=== PATIENT | female | born 1965 | race Caucasian/White ===

== ENCOUNTER 2016-09-25 18:59 | Emergency (ER) | payer OTHER ==
[~2016-09-25] VITALS: Ht 165.1 cm; Wt 62.6 kg
[~2016-09-25 18:59] MED LIST: ATV/1 PO; PRLSR20 PO; RTL20 PO
[2016-09-25 19:05] VITALS: TEMP 36.5; Ht 165.1 cm; Wt 62.6 kg
[2016-09-25] MEDS ORDERED: SODIUM CHLORIDE 0.9% 1000ML 1,000 ML IV STA (19:47)
[2016-09-25] MEDS ORDERED: METH20TA66 PO (19:50)
[2016-09-25] MEDS ORDERED: ATV1 PO (19:50)
[2016-09-25] MEDS ORDERED: OPTIRAY 320 IV PRN (20:00)
[2016-09-25] MEDS ORDERED: MoRPHine SULFATE 4 MG/ML 1 ML CARP\\VIAL IV STA (20:09)
[2016-09-25 20:32] LABS: BUN/CREATININE RATIO 8.6 (10-20); CALCIUM 8.7 mg/dl (8.5-10.1); CREATININE 0.65 mg/dl (0.60-1.20); POTASSIUM 3.2 mmol/L (3.5-5.1)
[2016-09-25 20:36] LABS: URINE APPEARANCE CLEAR (CLEAR); URINE BILIRUBIN NEG (NEG); URINE COLOR YELLOW; URINE EPITHELIAL CELL AUTO 20-30 /lpf (0-5); URINE NITRITE NEG (NEG); URINE SPECIFIC GRAVITY 1.006 (1.000-1.030); UROBILINOGEN NEG (NEG); ZZUR CULT IF INDIC CLEAN CATCH NO
[2016-09-25 20:37] LABS: MANUAL MICROSCOPIC REQUIRED? NO; REVIEW REQ? NO
[2016-09-25 21:05] LABS: BASO % 0.1 %; BASO ABS # 0.01 K/uL (0-0.2); COMPLETE YES; EOS % 2.1 %; HEMATOCRIT 38.1 % (37-47); IG% 0.2 %; LYMPH % 22.6 %; LYMPH ABS # 2.37 K/uL (1.2-3.4); MEAN CELL VOLUME 100.3 fL (80-100); MEAN CORPUSCULAR HGB CONC 34.9 g/dl (32-36); MEAN PLATELET VOLUME 8.9 fL (7.4-10.4); MONO % 5.3 %; NEUT % 69.7 %; PLATELET COUNT 335 K/uL (130-400); WHITE BLOOD COUNT 10.48 K/uL (4.8-10.8)
--- NOTE | 2016-09-25 21:20 | DIAGNOSTIC IMAGING REPORT ---
LUMBAR SPINE CT CT DOSE: 285.15 mGy.cm HISTORY: Pain abd and back pain TECHNIQUE: Multiaxial CT images of the lumbar spine were performed and reformatted in the sagittal and coronal plane without the use of contrast. COMPARISON: None. FINDINGS: No fractures. No subluxation. Paraspinal soft tissues are unremarkable. IMPRESSION: No fractures within the lumbar spine. Negative study Electronically signed by: Chay Cordova M.D. 09/25/2016 9:18 PM Dictated Date/Time: 09/25/2016 9:15 PM
--- NOTE | 2016-09-25 21:23 | DIAGNOSTIC IMAGING REPORT ---
ABDOMEN AND PELVIS CT WITH IV CONTRAST CT DOSE: HISTORY: Pain right sided abd pain, bloating, diarrhea TECHNIQUE: Multiaxial CT images of the abdomen and pelvis were performed following the use of intravenous contrast. COMPARISON STUDY: 07/22/2015 FINDINGS: Lung bases are clear. Liver spleen and pancreas appear unremarkable. Appears described findings of pancreatitis have resolved. Gallbladder is negative for distention. The appendix is normal. Bowel pattern is nonobstructive. Suggestion of a slight degree of wall edema of the descending colon. This is seen to a lesser extent involving the transverse colon. Sigmoid colon is considered unremarkable. IMPRESSION: 1. Findings suggesting a mild or low-grade segmental colitis. 2. No evidence for abscess collection or obstruction. 3. Normal appendix. 4. No evidence for an obstructing urinary tract calculus. Electronically signed by: Chay Cordova M.D. 09/25/2016 9:21 PM Dictated Date/Time: 09/25/2016 9:18 PM
[2016-09-25] MEDS ORDERED: OXYCODONE IR HOME PACK PO ONE (22:15)
[2016-09-25] MEDS ORDERED: OXYC1TAB3 PO (22:30)
--- NOTE | 2016-09-25 22:32 | EMERGENCY ROOM VISIT NOTE ---
History First contact with patient: 19:37 Chief Complaint: BACK PAIN Stated Complaint: BACK PAIN,DEHYDRATION,BLOATING History of Present Illness The patient is a 51 year old female who presents to the Emergency Room with complaints of back pain, diarrhea and abdominal bloating. The patient reports that she had a "stomach bug" approximately 3 weeks ago. She reports that since then, she has had persistent diarrhea. Her diarrhea seems to be worse in the morning. She does report a history of irritable bowel syndrome. The patient reports that today, she felt that her abdomen was bloated. She also reports pain in the upper abdomen and in the back, "up and down the spine." The patient reports a history of similar symptoms approximately one year ago. At that time, she was seen here and diagnosed with pancreatitis. She reports that she was supposed to have a colonoscopy afterward, but that it was canceled twice. She denies any recent antibiotic use. She denies any uncooked food sources or unknown water sources. She denies any nausea, vomiting, fevers/ chills, chest pain or shortness of breath. She denies any blood in her stools. She denies any urinary symptoms. The patient does state that she was seen yesterday at [facility] walk-in clinic and given Cipro for a possible urinary tract infection. Review of Systems A complete 10-point Review of Systems was discussed with the patient, with pertinent positives and negatives listed in the History of Present Illness. All remaining Review of Systems questions can be considered negative unless otherwise specified. Past Medical/Surgical History Medical Problems: (1) Anxiety (2) Colitis (3) Depression (4) History of breast cancer (5) Irritable bowel syndrome (6) Pancreatitis Surgical Problems: (1) Status post mastectomy Family History No significant family history Social History Smoking Status: Current Every Day Smoker Alcohol Use: occasionally Marital Status: Housing Status: lives with family Occupation Status: employed Current/Historical Medications Scheduled Lorazepam (Lorazepam), 1 MG PO QAM Methylphenidate (Ritalin), 10 MG PO QD@1200 Methylphenidate HCl (Methylphenidate HCl), 10 MG PO QAM Scheduled PRN Oxycodone Ir (Roxicodone Ir), 1-2 TAB PO Q4H PRN for Pain Allergies Coded Allergies: Penicillins (Verified Allergy, Unknown, 08/11/11) Sulfa Drugs (Verified Allergy, Unknown, 08/11/11) Physical Exam Vital Signs Date Time Temp Pulse Resp B/P Pulse Ox O2 Delivery O2 Flow Rate FiO2 09/25/16 22:35 89 18 130/87 97 09/25/16 20:48 94 18 112/74 96 Room Air 09/25/16 19:05 36.5 100 16 144/89 97 Room Air Physical Exam VITALS: Vitals are noted on the nurse's note and reviewed by myself. Vital signs stable. GENERAL: This is a 51-year-old female, in no acute distress, nondiaphoretic, well-developed well-nourished. SKIN: Capillary reflex less than 2 seconds. HEENT: Normocephalic. PERRLA. EOMI. Nares patent. Mucous membranes moist. Neck is supple without nuchal rigidity. HEART: Regular rate and rhythm without murmurs gallops or rubs. LUNGS: Clear to auscultation bilaterally without wheezes, rales or rhonchi. No retractions or accessory muscle use. ABDOMEN: Hyperactive bowel sounds x 4. No significant tenderness to palpation. MUSCULOSKELETAL: No tenderness of the lumbar spine. NEURO: Patient was alert and oriented to person place and time. Medical Decision & Procedures ER Provider Diagnostic Interpretation: LUMBAR SPINE CT FINDINGS: No fractures. No subluxation. Paraspinal soft tissues are unremarkable. IMPRESSION: No fractures within the lumbar spine. Negative study ABDOMEN AND PELVIS CT WITH IV CONTRAST FINDINGS: Lung bases are clear. Liver spleen and pancreas appear unremarkable. Appears described findings of pancreatitis have resolved. Gallbladder is negative for distention. The appendix is normal. Bowel pattern is nonobstructive. Suggestion of a slight degree of wall edema of the descending colon. This is seen to a lesser extent involving the transverse colon. Sigmoid colon is considered unremarkable. IMPRESSION: 1. Findings suggesting a mild or low-grade segmental colitis. 2. No evidence for abscess collection or obstruction. 3. Normal appendix. 4. No evidence for an obstructing urinary tract calculus. Laboratory Results 09/25/16 20:00 Red Blood Count 3.80, Mean Corpuscular Volume 100.3, Mean Corpuscular Hemoglobin 35.0, Mean Corpuscular Hemoglobin Concent 34.9, Mean Platelet Volume 8.9, Neutrophils (%) (Auto) 69.7, Lymphocytes (%) (Auto) 22.6, Monocytes (%) ( Auto) 5.3, Eosinophils (%) (Auto) 2.1, Basophils (%) (Auto) 0.1, Neutrophils # ( Auto) 7.30, Lymphocytes # (Auto) 2.37, Monocytes # (Auto) 0.56, Eosinophils # ( Auto) 0.22, Basophils # (Auto) 0.01 09/25/16 20:00 Test 09/25/16 20:00 09/25/16 20:03 White Blood Count 10.48 K/uL (4.8-10.8) Red Blood Count 3.80 M/uL (4.2-5.4) Hemoglobin 13.3 g/dL (12.0-16.0) Hematocrit 38.1 % (37-47) Mean Corpuscular Volume 100.3 fL (80-100) Mean Corpuscular Hemoglobin 35.0 pg (25-34) Mean Corpuscular Hemoglobin Concent 34.9 g/dl (32-36) Platelet Count 335 K/uL (130-400) Mean Platelet Volume 8.9 fL (7.4-10.4) Neutrophils (%) (Auto) 69.7 % Lymphocytes (%) (Auto) 22.6 % Monocytes (%) (Auto) 5.3 % Eosinophils (%) (Auto) 2.1 % Basophils (%) (Auto) 0.1 % Neutrophils # (Auto) 7.30 K/uL (1.4-6.5) Lymphocytes # (Auto) 2.37 K/uL (1.2-3.4) Monocytes # (Auto) 0.56 K/uL (0.11-0.59) Eosinophils # (Auto) 0.22 K/uL (0-0.5) Basophils # (Auto) 0.01 K/uL (0-0.2) RDW Standard Deviation 51.9 fL (36.4-46.3) RDW Coefficient of Variation 14.1 % (11.5-14.5) Immature Granulocyte % (Auto) 0.2 % Immature Granulocyte # (Auto) 0.02 K/uL (0.00-0.02) Anion Gap 10.0 mmol/L (3-11) Est Creatinine Clear Calc Drug Dose 94.2 ml/min Estimated GFR () 120.8 Estimated GFR (Non- 104.3 BUN/Creatinine Ratio 8.6 (10-20) Calcium Level 8.7 mg/dl (8.5-10.1) Total Bilirubin 0.6 mg/dl (0.2-1) Aspartate Amino Transf (AST/SGOT) 17 U/L (15-37) Alanine Aminotransferase (ALT/SGPT) 15 U/L (12-78) Alkaline Phosphatase 90 U/L (45-117) Total Protein 7.0 gm/dl (6.4-8.2) Albumin 3.5 gm/dl (3.4-5.0) Globulin 3.5 gm/dl (2.5-4.0) Albumin/Globulin Ratio 1.0 (0.9-2) Lipase 3113 U/L (73-393) Urine Color YELLOW Urine Appearance CLEAR (CLEAR) Urine pH 6.0 (4.5-7.5) Urine Specific [place] 1.006 (1.000-1.030) Urine Protein NEG (NEG) Urine Glucose (UA) NEG (NEG) Urine Ketones NEG (NEG) Urine Occult Blood TRACE (NEG) Urine Nitrite NEG (NEG) Urine Bilirubin NEG (NEG) Urine Urobilinogen NEG (NEG) Urine Leukocyte Esterase NEG (NEG) Urine WBC (Auto) 1-5 /hpf (0-5) Urine RBC (Auto) 0-4 /hpf (0-4) Urine Hyaline Casts (Auto) 0 /lpf (0-5) Urine Epithelial Cells (Auto) 20-30 /lpf (0-5) Urine Bacteria (Auto) NEG (NEG) Urine Test NEG (NEG) Medications Administered Medications (Trade) Dose Ordered Sig/Concepcion Route Start Time Stop Time Status Last Admin Dose Admin Sodium Chloride (Nss 1000ml) 1,000 ml @ 999 mls/hr Q1H1M STAT IV 09/25/16 19:47 09/25/16 20:47 DC 09/25/16 20:01 999 MLS/HR Morphine Sulfate (MoRPHine SULFATE INJ) 4 mg NOW STAT IV 09/25/16 20:09 09/25/16 20:10 DC 09/25/16 20:17 4 MG Oxycodone HCl (Roxicodone Immediate Rel 5MG Home Pack) 1 homepack UD ONCE PO 09/25/16 22:15 09/25/16 22:16 DC 09/25/16 22:25 1 HOMEPACK Medical Decision Differential diagnosis includes gastroenteritis, colitis, pancreatitis, diverticulitis, among others. The patient was evaluated as above. Labs were drawn and IV access was obtained. Imaging studies were performed and read by radiology as above. The patient was medicated as above. The patient was reassessed multiple times during their stay in the emergency department and remained in stable condition. The patient is a 51-year-old female who presents today complaining of abdominal bloating and persistent diarrhea. Labs revealed. No leukocytosis, anemia or concerning elect avoid abnormalities. Potassium was slightly low at 3.2, likely secondary to diarrhea. Lipase was found to be elevated at 3113. CT of the abdomen/pelvis did not show any evidence of acute pancreatitis, although the patient does likely have mild pancreatitis continued into her symptoms. CT did show evidence of a mild colitis. CT of the lumbar spine was performed and showed no acute abnormalities. On the patient's previous admission last year, she was found to have colitis but did not follow up for a colonoscopy. She will likely need to have this done as an outpatient. She was not able to provide a stool sample and was given an order to do so. She was given IV morphine with good relief of her pain. She will be discharged home on OxyIR and follow-up with the primary care provider within 48 hours. Urinalysis was not suggestive of infection. Urine was negative. The patient was offered admission for pain control but preferred to be discharged home. She will return for worsening symptoms. Based on the patient's presentation, lab results, and imaging studies, I feel the patient is stable for outpatient treatment. The patient's case was reviewed with Dr. Dias, ED attending physician, who agreed with my assessment and treatment plan. Discharge instructions were reviewed with the patient. The patient verbalized understanding of my assessment and treatment plan and was discharged home in good condition. Impression Primary Impression: Colitis Additional Impression: Pancreatitis Departure Information Dispostion Home / Self-Care Condition GOOD Prescriptions Oxycodone Ir (Roxicodone Ir) 5 Mg Tab 1-2 TAB PO Q4H Y for Pain, #15 TAB For Initial Treatment Prov: Darlyn Cordero .FRANCIA 09/25/16 Referrals Abdiel Frias M.D. (PCP) Patient Instructions My [facility] Additional Instructions You have been prescribed OxyIR to be used for pain control. Take 1-2 tablets every 4-6 hours as needed for pain. This is a narcotic medication. You cannot drive or consume alcohol while on this medicine. This medicine should only be used for pain that cannot be controlled with [id number] pain medicines. For pain control, you can use the following [id number] medicines (if >12 yo): - Regular strength (325mg/tab) Tylenol (acetaminophen) 2 tabs every 4-6 hours as needed. Do not exceed 12 tablets in a 24 hour period. Avoid taking more than 4 grams (4000 mg) of Tylenol per day. This includes any other sources of acetaminophen you may take on a regular basis. - Regular strength (200 mg/tab) Advil (ibuprofen) 1-2 tabs every 4-6 hours as needed. Do not exceed a dose of 3200 mg per day. Clear liquid diet for the next 48 hours. Follow-up with your primary care provider within 48 hours. You were given an order to have your stool tested as an outpatient. You may bring the sample to the lab. Return to the emergency department with worsening pain, vomiting, fevers, or any other new/concerning symptoms. Problem Qualifiers Additional Impression: Pancreatitis Chronicity: acute Pancreatitis type: unspecified pancreatitis type Acute pancreatitis complication: unspecified Qualified Codes: K85.90 - Acute pancreatitis without necrosis or infection, unspecified
[2016-09-25 22:35] VITALS: BP 130/87; PULSE 89; O2SAT 97
== END 2016-09-25 22:37 | disposition home or self-care (01) ==
LOC: C.EDB 18:59 → C.EDC 22:37
DX: K52.9 Noninfective gastroenteritis and colitis, unspecified (principal); K85.90 Acute pancreatitis without necrosis or infection, unspecified; F32.9 Major depressive disorder, single episode, unspecified; F41.9 Anxiety disorder, unspecified; K58.9 Irritable bowel syndrome, unspecified; F17.200 Nicotine dependence, unspecified, uncomplicated; Z85.3 Personal history of malignant neoplasm of breast; Z90.13 Acquired absence of bilateral breasts and nipples; Z87.19 Personal history of other diseases of the digestive system; Z79.899 Other long term (current) drug therapy; Z88.0 Allergy status to penicillin; Z88.2 Allergy status to sulfonamides

== ENCOUNTER 2019-12-06 08:05 | Inpatient (IN) ==
[2019-12-06] MEDS ORDERED: MULTI-VITAMIN INFUSION 10 ML, THIAMINE HCL 100 MG, FOLIC ACID 1 MG in SODIUM CHLORIDE 0... IV ONE (08:23)
[2019-12-06] MEDS ORDERED: DiphenhydrAMINE HCL 50 MG/ML VIAL IV STA (08:23)
[2019-12-06] MEDS ORDERED: METOCLOPRAMIDE HCL INJ 5 MG/ML 2 ML VIAL IV STA (08:23)
[2019-12-06] MEDS ORDERED: ACETAMINOPHEN 1,000 MG/100 ML VIAL IV STA (08:23)
[2019-12-06] MEDS ORDERED: SODIUM CHLORIDE 0.9% 1000ML 1,000 ML IV ONE (08:23)
[2019-12-06] MEDS ORDERED: FAMOTIDINE 20MG IV PUSH 20 MG/5 ML SYR IV STA (08:23)
[2019-12-06] MEDS ORDERED: LORazepam 1 MG/2 ML VIAL IV STA (08:28)
--- NOTE | 2019-12-06 08:28 | Emergency Department Note ---
Impression & Plan Acute pancreatitis, Alcohol use, Abdominal pain, Acute hypokalemia, Transaminitis ED Provider Note NAME: DAMIEN SHAFER AGE: 54 SEX: F ARRIVES VIA: Walk-In INFORMANT: Patient, ED PROVIDER(S): Emmanuel Whitley MD CHIEF COMPLAINT: Abdominal pain PLAN: Disposition: Admit MEDICAL DECISION MAKING: The patient is a pleasant 54-year-old woman with a past medical history of regular alcohol use with a history of pancreatitis (presumed alcoholic pancreatitis) who presents emergency department with generalized abdominal pain which began yesterday with associated nausea. Patient does not remember exactly but feels as though this could be similar to her pancreatitis. She reports her last drink of alcohol was 5 days ago because she has not been feeling well. She says normally she will have 3 rum drinks after work on a daily basis. She reports that she is unsure if she withdrawals from alcohol as she is always "shaky". She denies any history of alcohol withdrawal seizures. Denies fevers, chills, cough, congestion, diarrhea, urinary symptoms. On arrival the patient is uncomfortable no acute distress, afebrile with stable vital signs. The patient appears clinically dry. She has generalized abdominal tenderness to light touch of the skin. EKG without evidence of acute ischemia. CXR negative. WBC and platelets within normal limits. H/H 11.7/35.1 without recent values for comparison. Potassium 3.1 with repletion provided. Chemistry without acidosis. Glucose is 131. Total bilirubin within normal limits with direct bilirubin 0.4. AST and ALT are elevated at 129 and 151, respectively. Alk phos is 505 without prior values for comparison. Troponin negative/undetectable. Total protein and albumin are low at 5.9 and 2.2, respectively. Lipase is elevated at 4500. Blood alcohol was undetectable. CT of the abdomen pelvis was performed and demonstrates acute pancreatitis. There is mild fatty liver replacement. Mild abdominal/pelvic ascites. No biliary pathology is noted. [facility] with Dr[facility] Monte [facility] hospitalist who will evaluate the patient for admission. Triage Nursing notes reviewed and agree them. Prior medical records reviewed Vital Signs: reviewed and remarkable for no significant abnormalities Differential diagnosis: Appendicitis, ovarian cyst, ovarian torsion, ectopic , TOA, PID, infections, diverticulitis, UTI, obstruction, mesenteric ischemia, aortic pathology, inflammatory bowel disease, renal colic, PUD, pancreatitis, biliary pathology, hernia, volvulus, constipation, as well as other pathologies. ER treatment provided: See below. Diagnostics interpreted by me: ECG: Normal sinus rhythm, 74 bpm, normal axis, no ectopy, no overt ST elevation or depression, QTC 437, QRS 76. Cardiac Monitoring: An order for continuous cardiac monitoring was placed and demonstrated normal sinus rhythm, 74 bpm, no ectopy. Laboratory studies: See below Imaging studies: XR chest 1V portable CLINICAL HISTORY: Chest Pain dyspnea COMPARISON STUDY: 04/13/2019 FINDINGS: The bones soft tissues and hemidiaphragms are normal. The cardiomediastinal silhouette is normal. The lungs are clear. The pulmonary vasculature is normal. IMPRESSION: Negative chest. -- CT abd pelvis IV con only CT DOSE: 289.30 mGy.cm HISTORY: abdominal pain, h/o etoh pancreatitis TECHNIQUE: Multiaxial CT images of the abdomen and pelvis were performed following the use of intravenous contrast. A dose lowering technique was utilized adhering to the principles of ALARA. COMPARISON STUDY: 09/25/2016 FINDINGS: Minimal chronic bibasilar interstitial change. Diffuse fatty replacement of the liver. Hepatomegaly. Edematous change of the pancreas. Moderate peripancreatic infiltrative change. Small amount of fluid within the left and to a lesser extent right paracolic gutter regions. Kidneys enhance uniformly. No evidence for drainable abscess collection or pseudocyst. Bowel pattern is nonobstructive. There is suggestion of slight wall edematous change of the colon. This potentially is a technical artifact. Trace amount of free fluid within the pelvic cul-de-sac. Small superior anterior wall ventral hernia. This is unchanged from the prior study. IMPRESSION: 1. Pancreatitis. 2.. Pancreas is edematous with evidence for moderate to rather significant peripancreatic infiltrative change. 3. Mild abdominal and pelvic ascites. 4. Diffuse fatty replacement of the liver. 5. No evidence for drainable abscess collection or obstructive change. Consultation(s): Case was d/w POLI Gonzalez PAC, with Dr. Monte [facility] hospitalist who will evaluate the patient for admission. HPI: The patient is a pleasant 54-year-old woman with a past medical history of regular alcohol use with a history of pancreatitis (presumed alcoholic pancreatitis) who presents emergency department with generalized abdominal pain which began yesterday with associated nausea. Patient does not remember exactly but feels as though this could be similar to her pancreatitis. She reports her last drink of alcohol was 5 days ago because she has not been feeling well. She says normally she will have 3 rum drinks after work on a daily basis. She reports that she is unsure if she withdrawals from alcohol as she is always "shaky". She denies any history of alcohol withdrawal seizures. Denies fevers, chills, cough, congestion, diarrhea, urinary symptoms. ROS: See above HPI for pertinent positives & negatives. A total of 10 systems reviewed and were otherwise negative. PAST MEDICAL HISTORY:See Below PAST SURGICAL HISTORY:See Below FAMILY HISTORY:See Below SOCIAL HISTORY:See Below HOME MEDICATIONS:See Below ALLERGIES:See Below VITALS:See Below PHYSICAL EXAMINATION: GENERAL: Awake, alert, uncomfortable-appearing, in no distress HENT: Normocephalic, atraumatic. Oropharynx with dry mucous membranes and otherwise unremarkable. EYES: Normal conjunctiva. Sclera non-icteric. NECK: Supple. No nuchal rigidity. FROM. No JVD. RESPIRATORY: Clear to auscultation. CARDIAC: Regular rate, normal rhythm. Extremities warm and well perfused. Pulses equal. ABDOMEN: Soft, non-distended. Generalized tenderness to light touch of the skin. No rebound or guarding. No masses. RECTAL: Deferred. MUSCULOSKELETAL: Chest examination reveals no tenderness. The back is symmetrical on inspection without obvious abnormality. There is no CVA tenderness to palpation. No joint edema. LOWER EXTREMITIES: Calves are equal size bilaterally and non-tender. No edema. No discoloration. NEURO: Normal sensorium. No sensory or motor deficits noted. Slightly tremulous. SKIN: No rash or jaundice noted. 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 Beliefs That Will Affect Care: None Current Living Situation: Alone Other Information That Helps Us Care for You: No Feels Safe at Home: Yes Safety Concerns: Feels Safe At This Time Smoking Status: Former smoker Tobacco Type: cigarettes ; Cigarettes Per Day: 15 ; Do You Dip or Chew Tobacco: No ; Second Hand Exposure: No ; Tobacco Cessation Education Requested by Patient: No Hx Alcohol Use: Yes Hx Substance Use: Yes substance use type: prescription drug Substance Use Type Other:: lorazepam Last Used Substance: Unknown Allergies Allergies Allergy/AdvReac Type Severity Reaction Status Date / Time Penicillins Allergy Unknown Verified 12/06/19 08:58 Sulfa (Sulfonamide Allergy Unknown Verified 12/06/19 08:58 Antibiotics) Home Meds Home Medications Medication Instructions Recorded Confirmed acetaminophen [Tylenol] 650 mg PO UD PRN 12/06/19 12/06/19 ibuprofen 400 mg PO Q6H PRN 12/06/19 12/06/19 lorazepam 1 mg PO QAM 12/06/19 12/06/19 methylphenidate HCl 10 mg PO DAILY@1200 12/06/19 12/06/19 methylphenidate HCl 10 mg PO QAM 12/06/19 12/06/19 quetiapine 50 mg PO HS 12/06/19 12/06/19 Results & Data (ED) Vital Signs Vital Signs - 24 hr 12/06/19 08:09 12/06/19 08:46 12/06/19 08:50 Temperature 36.5 C Temperature Source Oral Pulse Rate 88 79 73 Pulse Rate [Right Finger] Pulse Rate from SpO2 Sensor Respiratory Rate 18 20 19 Respiratory Effort / Characteristics Non-Labored Spontaneous Respiratory Depth Normal Respiratory Pattern Regular Blood Pressure 121/75 Blood Pressure [Right Arm] Blood Pressure Mean 90 Blood Pressure Mean [Right Arm] Blood Pressure Position Sitting Pulse Oximetry 100 Oxygen Delivery Method Room Air Sepsis Recent Fever Within 48 Hours No Sepsis New/Unexplained Change in Mental Status No Sepsis Action Taken by Nursing No Action Required 12/06/19 09:00 12/06/19 09:01 12/06/19 09:02 Temperature Temperature Source Pulse Rate 77 Pulse Rate [Right Finger] 72 Pulse Rate from SpO2 Sensor 78 Respiratory Rate 15 21 Respiratory Effort / Characteristics Non-Labored Respiratory Depth Normal Respiratory Pattern Blood Pressure 145/80 H Blood Pressure [Right Arm] 145/80 H Blood Pressure Mean 86 Blood Pressure Mean [Right Arm] 101 Blood Pressure Position Pulse Oximetry 95 94 Oxygen Delivery Method Room Air Nasal Cannula Sepsis Recent Fever Within 48 Hours Sepsis New/Unexplained Change in Mental Status Sepsis Action Taken by Nursing 12/06/19 09:10 12/06/19 09:20 12/06/19 09:30 Temperature Temperature Source Pulse Rate 81 83 82 Pulse Rate [Right Finger] Pulse Rate from SpO2 Sensor 78 79 85 Respiratory Rate 21 21 17 Respiratory Effort / Characteristics Respiratory Depth Respiratory Pattern Blood Pressure Blood Pressure [Right Arm] Blood Pressure Mean Blood Pressure Mean [Right Arm] Blood Pressure Position Pulse Oximetry 95 94 96 Oxygen Delivery Method Sepsis Recent Fever Within 48 Hours Sepsis New/Unexplained Change in Mental Status Sepsis Action Taken by Nursing 12/06/19 09:50 12/06/19 09:51 12/06/19 10:00 Temperature Temperature Source Pulse Rate Pulse Rate [Right Finger] 76 Pulse Rate from SpO2 Sensor 87 77 95 H Respiratory Rate 20 Respiratory Effort / Characteristics Respiratory Depth Respiratory Pattern Blood Pressure 145/76 H 145/78 H Blood Pressure [Right Arm] 145/76 H Blood Pressure Mean 107 103 Blood Pressure Mean [Right Arm] 99 Blood Pressure Position Pulse Oximetry 95 95 96 Oxygen Delivery Method Room Air Sepsis Recent Fever Within 48 Hours Sepsis New/Unexplained Change in Mental Status Sepsis Action Taken by Nursing 12/06/19 10:10 12/06/19 10:20 12/06/19 10:30 Temperature Temperature Source Pulse Rate Pulse Rate [Right Finger] Pulse Rate from SpO2 Sensor 76 100 H 99 H Respiratory Rate Respiratory Effort / Characteristics Respiratory Depth Respiratory Pattern Blood Pressure 127/83 Blood Pressure [Right Arm] Blood Pressure Mean 94 Blood Pressure Mean [Right Arm] Blood Pressure Position Pulse Oximetry 98 96 96 Oxygen Delivery Method Sepsis Recent Fever Within 48 Hours Sepsis New/Unexplained Change in Mental Status Sepsis Action Taken by Nursing 12/06/19 10:40 Temperature Temperature Source Pulse Rate Pulse Rate [Right Finger] Pulse Rate from SpO2 Sensor 98 H Respiratory Rate Respiratory Effort / Characteristics Respiratory Depth Respiratory Pattern Blood Pressure Blood Pressure [Right Arm] Blood Pressure Mean Blood Pressure Mean [Right Arm] Blood Pressure Position Pulse Oximetry 97 Oxygen Delivery Method Sepsis Recent Fever Within 48 Hours Sepsis New/Unexplained Change in Mental Status Sepsis Action Taken by Nursing Laboratory Data Attestation: I reviewed the patient's lab results. Result diagrams: 12/06/19 08:33 12/06/19 08:33 Lab Results 12/06/19 12/06/19 12/06/19 Range/Units 08:33 08:33 08:33 WBC 7.99 (4.8-10.8) K/uL RBC 3.39 L (4.2-5.4) M/uL Hgb 11.7 L (12.0-16.0) g/dL Hct 35.1 L (37-47) % MCV 103.5 H (80-100) fL MCH 34.5 H (25-34) pg MCHC 33.3 (32-36) g/dL RDW Std Deviation 64.7 H (36.4-46.3) fL RDW Coeff of Kobe 17.6 H (11.5-14.5) % Plt Count 299 (130-400) K/uL MPV 9.5 (7.4-10.4) fL Immature Gran % (Auto) 0.3 % Neut % (Auto) 80.7 % Lymph % (Auto) 13.4 % [place] % (Auto) 5.0 % Eos % (Auto) 0.5 % Baso % (Auto) 0.1 % Immature Gran # (Auto) 0.02 (0.00-0.02) K/uL Neut # (Auto) 6.45 (1.4-6.5) K/uL Lymph # (Auto) 1.07 L (1.2-3.4) K/uL [place] # (Auto) 0.40 (0.11-0.59) K/uL Eos # (Auto) 0.04 (0-0.5) K/uL Baso # (Auto) 0.01 (0-0.2) K/uL Absolute Nucleated RBC 0.03 H (0-0) K/uL Nucleated RBC % (auto) 0.3 % PT 10.6 (9.0-12.0) Seconds INR 1.0 (0.9-1.1) APTT 21.4 (21.0-31.0) Seconds PTT Ratio 0.8 Sodium 135 L (136-145) mmol/L Potassium 3.1 L (3.5-5.1) mmol/L Chloride 102 (98-107) mmol/L Carbon Dioxide 23 (21-32) mmol/L Anion Gap 9.0 (3-11) BUN 6 L (7-18) mg/dl Creatinine 0.75 (0.6-1.2) mg/dl Est Cr Clr Drug Dosing 79.0 ml/min Est GFR ( Amer) 106.2 Est GFR (Non-Af Amer) 91.6 BUN/Creatinine Ratio 8.5 L (10-20) Glucose 131 H (70-99) mg/dl Calcium 8.3 L (8.5-10.1) mg/dl Phosphorus 2.5 (2.5-4.9) mg/dl Magnesium 1.8 (1.8-2.4) mg/dl Total Bilirubin 0.8 (0.2-1) mg/dl Direct Bilirubin 0.4 H (0-0.2) mg/dl AST 129 H (15-37) U/L ALT 151 H (12-78) U/L Alkaline Phosphatase 505 H (45-117) U/L Troponin I < 0.015 (0-0.045) ng/ml Total Protein 5.9 L (6.4-8.2) gm/dl Albumin 2.2 L (3.4-5.0) gm/dl Globulin 3.7 (2.5-4.0) gm/dl Albumin/Globulin Ratio 0.6 L (0.9-2) Lipase 4533 H (73-393) U/L TSH 0.836 (0.300-4.500) uIu/ml HCG, Qual (Negative) Ethyl Alcohol mg/dL (0-3) mg/dl 12/06/19 12/06/19 Range/Units 08:33 08:33 WBC (4.8-10.8) K/uL RBC (4.2-5.4) M/uL Hgb (12.0-16.0) g/dL Hct (37-47) % MCV (80-100) fL MCH (25-34) pg MCHC (32-36) g/dL RDW Std Deviation (36.4-46.3) fL RDW Coeff of Kobe (11.5-14.5) % Plt Count (130-400) K/uL MPV (7.4-10.4) fL Immature Gran % (Auto) % Neut % (Auto) % Lymph % (Auto) % [place] % (Auto) % Eos % (Auto) % Baso % (Auto) % Immature Gran # (Auto) (0.00-0.02) K/uL Neut # (Auto) (1.4-6.5) K/uL Lymph # (Auto) (1.2-3.4) K/uL [place] # (Auto) (0.11-0.59) K/uL Eos # (Auto) (0-0.5) K/uL Baso # (Auto) (0-0.2) K/uL Absolute Nucleated RBC (0-0) K/uL Nucleated RBC % (auto) % PT (9.0-12.0) Seconds INR (0.9-1.1) APTT (21.0-31.0) Seconds PTT Ratio Sodium (136-145) mmol/L Potassium (3.5-5.1) mmol/L Chloride (98-107) mmol/L Carbon Dioxide (21-32) mmol/L Anion Gap (3-11) BUN (7-18) mg/dl Creatinine (0.6-1.2) mg/dl Est Cr Clr Drug Dosing ml/min Est GFR ( Amer) Est GFR (Non-Af Amer) BUN/Creatinine Ratio (10-20) Glucose (70-99) mg/dl Calcium (8.5-10.1) mg/dl Phosphorus (2.5-4.9) mg/dl Magnesium (1.8-2.4) mg/dl Total Bilirubin (0.2-1) mg/dl Direct Bilirubin (0-0.2) mg/dl AST (15-37) U/L ALT (12-78) U/L Alkaline Phosphatase (45-117) U/L Troponin I (0-0.045) ng/ml Total Protein (6.4-8.2) gm/dl Albumin (3.4-5.0) gm/dl Globulin (2.5-4.0) gm/dl Albumin/Globulin Ratio (0.9-2) Lipase (73-393) U/L TSH (0.300-4.500) uIu/ml HCG, Qual Negative (Negative) Ethyl Alcohol mg/dL < 3.0 (0-3) mg/dl Administered Medications Sodium Chloride (Nss 1000ml) 1,000 mls @ 150 mls/hr IV .Q6H40M CHAU Stop: 12/07/19 10:44 Last Admin: 12/06/19 19:27 Dose: 150 mls/hr Documented by: [id number] Infusion: 12/06/19 18:08 Dose: 150 mls/hr Documented by: [id number] Admin: 12/06/19 11:27 Dose: 150 mls/hr Documented by: [id number] Ioversol (Optiray 320 100ml) 93 ml IV ONCE PRN PRN Reason: Interaction Checking Stop: 12/10/19 09:45 Last Admin: 12/06/19 09:46 Dose: 93 ml Documented by: [id number] Morphine Sulfate (Morphine Sulfate) 4 mg IV Q2H PRN PRN Reason: Pain Stop: 12/20/19 10:40 Last Admin: 12/06/19 22:13 Dose: 4 mg Documented by: [id number] Admin: 12/06/19 19:35 Dose: 4 mg Documented by: [id number] Admin: 12/06/19 16:17 Dose: 4 mg Documented by: [id number] Admin: 12/06/19 12:32 Dose: 4 mg Documented by: [id number] Ondansetron HCl (Zofran) 4 mg IV Q4H PRN PRN Reason: Nausea And Vomiting Stop: 01/05/20 10:43 Last Admin: 12/06/19 12:32 Dose: 4 mg Documented by: [id number] Quetiapine Fumarate (Seroquel) 50 mg PO HS CHAU Stop: 01/05/20 20:59 Last Admin: 12/06/19 21:18 Dose: 50 mg Documented by: [id number] Discontinued Medications Diphenhydramine HCl (Benadryl) 25 mg IV NOW STA Stop: 12/06/19 08:24 Last Admin: 12/06/19 08:34 Dose: 25 mg Documented by: [id number] Sodium Chloride (Nss 1000ml) 1,000 mls @ 999 mls/hr IV .Q1H1M ONE Stop: 12/06/19 09:23 Last Infusion: 12/06/19 10:14 Dose: 0 mls/hr Documented by: [id number] Admin: 12/06/19 08:33 Dose: 999 mls/hr Documented by: [id number] Multivitamins 10 ml/ Thiamine HCl 100 mg/ Folic Acid 1 mg/Sodium Chloride 1,011.2 mls @ 1,011.2 mls/hr IV .Q1H ONE Stop: 12/06/19 09:22 Last Infusion: 12/06/19 10:14 Dose: 0 mls/hr Documented by: [id number] Admin: 12/06/19 09:05 Dose: 1,011.2 mls/hr Documented by: [id number] Acetaminophen (Ofirmev) 1,000 mg in 100 mls @ 400 mls/hr IV NOW STA Stop: 12/06/19 08:37 Last Infusion: 12/06/19 09:06 Dose: 0 mls/hr Documented by: [id number] Admin: 12/06/19 08:34 Dose: 400 mls/hr Documented by: [id number] Famotidine (Pepcid 20mg Iv Push) 20 mg in 5 mls @ 2.5 mls/min IV NOW STA Stop: 12/06/19 08:24 Last Admin: 12/06/19 08:34 Dose: 2.5 mls/min Documented by: [id number] Lorazepam (Ativan) 1 mg in 2 mls @ 2 mls/min IV NOW STA Stop: 12/06/19 08:29 Last Admin: 12/06/19 08:55 Dose: 2 mls/min Documented by: [id number] Potassium Chloride (K Michael / Wtr) 10 meq in 100 mls @ 100 mls/hr IV Q1H CHAU Stop: 12/06/19 12:44 Last Infusion: 12/06/19 14:35 Dose: 0 mls/hr Documented by: [id number] Admin: 12/06/19 13:35 Dose: 100 mls/hr Documented by: [id number] Infusion: 12/06/19 12:27 Dose: 0 mls/hr Documented by: [id number] Admin: 12/06/19 11:27 Dose: 100 mls/hr Documented by: [id number] Metoclopramide HCl (Reglan) 10 mg IV NOW STA Stop: 12/06/19 08:24 Last Admin: 12/06/19 08:34 Dose: 10 mg Documented by: [id number] Morphine Sulfate (Morphine Sulfate) 6 mg IV NOW STA Stop: 12/06/19 09:56 Last Admin: 12/06/19 10:15 Dose: 6 mg Documented by: [id number] Morphine Sulfate (Morphine Sulfate) 2 mg IV NOW STA Stop: 12/06/19 11:13 Last Admin: 12/06/19 11:27 Dose: 2 mg Documented by: [id number] Blood Pressure Blood Pressure Findings: Elevated blood pressure Blood Pressure Disposition: elevated BP felt to be situational Discharge Plan Visit Data *Final* Discharge Date/Time: 12/06/19 11:47 Chief Complaint: Abdominal Pain Stated Complaint: PANCREATIC ATTACK - VOMITING ED Provider: Emmanuel Whitley Discharge Problem: Acute pancreatitis, Alcohol use, Abdominal pain, Acute hypokalemia, Transaminitis Patient Disposition: Admitted As Inpatient Discharge Instructions Interventions: ED Discharge Assessment Last Done: 12/06/19 11:47 Discharge Problem: Acute pancreatitis Qualifiers: Pancreatitis type: unspecified pancreatitis type Acute pancreatitis complication: unspecified Qualified Code(s): K85.90 - Acute pancreatitis without necrosis or infection, unspecified
--- NOTE | 2019-12-06 08:48 | XRay Report ---
XR chest 1V portable CLINICAL HISTORY: Chest Pain dyspnea COMPARISON STUDY: 04/13/2019 FINDINGS: The bones soft tissues and hemidiaphragms are normal. The cardiomediastinal silhouette is n ormal. The lungs are clear. The pulmonary vasculature is normal. IMPRESSION: Negative chest. ACT 112: Negative or not required by law. The above report was generated using voice recognition software. It may contain grammatical, syntax or spelling errors. Electronically signed by: Chay Cordova M.D. 12/06/2019 8:46 AM
[2019-12-06 08:53] LABS: Basophils # (auto) 0.01 K/uL (0-0.2); Basophils % (auto) 0.1 %; Eosinophils # (auto) 0.04 K/uL (0-0.5); Eosinophils % (auto) 0.5 %; Hematocrit (blood only) 35.1 % (37-47); Hemoglobin 11.7 g/dL (12.0-16.0); Immature Granulocytes # (auto) 0.02 K/uL (0.00-0.02); Immature Granulocytes % (auto) 0.3 %; Lymphocytes # (auto) 1.07 K/uL (1.2-3.4); Lymphocytes % (auto) 13.4 %; Mean Corpuscular Hemoglobin 34.5 pg (25-34); Mean Corpuscular Hgb Conc 33.3 g/dL (32-36); Mean Corpuscular Volume 103.5 fL (80-100); Mean Platelet Volume 9.5 fL (7.4-10.4); Neutrophils # (auto) 6.45 K/uL (1.4-6.5); Neutrophils % (auto) 80.7 %; Nucleated RBC # (auto) 0.03 K/uL (0-0); Nucleated RBC % (auto) 0.3 %; Platelet Count 299 K/uL (130-400); RDW Coefficient of Variation 17.6 % (11.5-14.5); RDW Standard Deviation 64.7 fL (36.4-46.3); Red Blood Count 3.39 M/uL (4.2-5.4); White Blood Count 7.99 K/uL (4.8-10.8)
[2019-12-06 09:04] LABS: Partial Thromboplastin Ratio 0.8; Partial Thromboplastin Time 21.4 Seconds (21.0-31.0); Prothrombin Time 10.6 Seconds (9.0-12.0)
[2019-12-06 09:11] LABS: Alanine Aminotransferase 151 U/L (12-78); Albumin Level 2.2 gm/dl (3.4-5.0); Aspartate Aminotransferase 129 U/L (15-37); BUN Creatinine Ratio 8.5 (10-20); Bilirubin Direct 0.4 mg/dl (0-0.2); Blood Urea Nitrogen 6 mg/dl (7-18); Calcium 8.3 mg/dl (8.5-10.1); Carbon Dioxide 23 mmol/L (21-32); Chloride 102 mmol/L (98-107); Est GFR (African American) 106.2; Est GFR (Non-African American) 91.6; Glucose 131 mg/dl (70-99); Magnesium 1.8 mg/dl (1.8-2.4); Potassium 3.1 mmol/L (3.5-5.1); Sodium 135 mmol/L (136-145)
[2019-12-06 09:20] LABS: Pregnancy Test, Serum Negative (Negative)
[2019-12-06 09:21] LABS: Albumin Globulin Ratio 0.6 (0.9-2); Alkaline Phosphatase 505 U/L (45-117); Bilirubin,Total 0.8 mg/dl (0.2-1); Globulin 3.7 gm/dl (2.5-4.0); Lipase 4533 U/L (73-393); Phosphorus 2.5 mg/dl (2.5-4.9); Thyroid Stimulating Hormone 0.836 uIu/ml (0.300-4.500); Total Protein 5.9 gm/dl (6.4-8.2); Troponin I < 0.015 ng/ml (0-0.045)
[2019-12-06] MEDS ORDERED: IOVERSOL 100ml IV PRN (09:46)
[2019-12-06] MEDS ORDERED: MoRPHine SULFATE 10 MG/ML CARP/VIAL IV STA (09:55)
--- NOTE | 2019-12-06 09:57 | CT Scan Report ---
CT abd pelvis IV con only CT DOSE: 289.30 mGy.cm HISTORY: abdominal pain, h/o etoh pancreatitis TECHNIQUE: Multiaxial CT images of the abdomen and pelvis were performed following the use of intrave nous contrast. A dose lowering technique was utilized adhering to the principles of ALARA. COMPARISON STUDY: 09/25/2016 FINDINGS: Minimal chronic bibasilar interstitial change. Diffuse fatty replacement of the liver. Hepatomegaly. Edematous change of the pancreas. Moderate peripancreatic infiltrative change. Small amount of fluid within the left and to a lesser extent right paracolic gutter regions. Kidneys enhance uniformly. No evidence for drainable abscess collection or pseudocyst. Bowel pattern is nonobstructive. There is suggestion of slight wall edematous change of the colon. Th is potentially is a technical artifact. Trace amount of free fluid within the pelvic cul-de-sac. Small superior anterior wall ventral hernia. This is unchanged from the prior study. IMPRESSION: 1. Pancreatitis. 2.. Pancreas is edematous with evidence for moderate to rather significant peripancreatic infiltrativ e change. 3. Mild abdominal and pelvic ascites. 4. Diffuse fatty replacement of the liver. 5. No evidence for drainable abscess collection or obstructive change. ACT 112: Negative or not required by law. The above report was generated using voice recognition software. It may contain grammatical, syntax or spelling errors. Electronically signed by: Chay Cordova M.D. 12/06/2019 9:55 AM
--- NOTE | 2019-12-06 10:41 | History & Physical Report ---
Date of Service December 06, 2019 Assessment & Plan (1) Pancreatitis: - Admit to med surg - CT reviewed showing pancreatitis, lipase elevated at 4533 - AST 129, ALT 151, alk phos 505 - follow with am labs to ensure improvement - NPO - NSS at 150 ml/hr x 1 day, given 1 L in the ER - Pain control with morphine, zofran (2) Bipolar 2 disorder: - Continue seroquel 50 mg HS (3) ADD (attention deficit disorder): - PDMP reviewed - takes methylphenidate 20 mg QAM, (not split dosing) along with lorazepam. - Would recommend reducing lorazepam if possible with this medication (4) Alcohol use: - Encourage cessation, drinks 3 drinks daily at least - Continue MVI, thiamine, folic acid daily - Encourage counseling, continue follow up with outpt psych, [facility] (5) History of tobacco use: - States she quit 1.5 months ago, no need for nicotine patch - Smoked 27 yrs ~ 1 ppd (6) DVT prophylaxis: - teds, ambulatory CODE: FULL Dispo: From home, likely to remain in the hospital x 2 days. History of Present Illness Primary Care Provider: Shira Mcduffie DO This is a 54 yo F with PMHx of pancreatitis, tobacco use with 27 years 1 ppd, Bipolar disorder, attention disorder on methylphenidate, who presents with worsening abdominal pain. This began 2 days ago. It is primarily epigastric in nature, radiating to her back, waxes and wanes. 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 She went to her co-workers home and took some ibuprofen for pain, which did not help. Then proceeded to come to the ER early this morning. Her pain was rated 10/10, currently a 7/10, nausea improved. Pt drinks bacardi rum, "3 alcoholic drinks daily on average". She admits to increased alcohol consumption over the past 3 months on a daily basis during the pandemic. Denies needing a drink to wake up, go to work, or hx of seizure. She admits to feeling shaky at times, but does not admit that alcohol improves the shaking. Last episode of pancreatitis was in 2016 but was deemed drug induced by suspected Tileptal as inciting medication, however it is unknown if she was also drinking alcohol at that time. She denies being on any other antiepileptic for mood swings with bipolar, but does take seroquel at night. She follows with [facility] as outpt with Aurea Jensen. PDMP checked and reveals she has been filling lorazepam and methylphenidate Rx routinely. Lipase elevated at 4533, CT reviewed indicating acute pancreatitis. Allergies Allergy/AdvReac Type Severity Reaction Status Date / Time Penicillins Allergy Unknown Verified 12/06/19 08:58 Sulfa (Sulfonamide Allergy Unknown Verified 12/06/19 08:58 Antibiotics) Home Medications Home Medications Medication Instructions Recorded Confirmed Type acetaminophen [Tylenol] 650 mg PO UD PRN 12/06/19 12/06/19 History ibuprofen 400 mg PO Q6H PRN 12/06/19 12/06/19 History lorazepam 1 mg PO QAM 12/06/19 12/06/19 History methylphenidate HCl 10 mg PO DAILY@1200 12/06/19 12/06/19 History methylphenidate HCl 10 mg PO QAM 12/06/19 12/06/19 History quetiapine 50 mg PO HS 12/06/19 12/06/19 History Past Med/Surg History Medical History (Updated 12/07/19 @ 00:35 by Emmanuel Whitley MD) ADD (attention deficit disorder) Alcohol use (Acute) Bipolar 2 disorder Social History Preferred Language: Gabonese Communication Ability: Effective Home Worker Required: No Beliefs That Will Affect Care: None Current Living Situation: Alone Other Information That Helps Us Care for You: No Feels Safe at Home: Yes Safety Concerns: Feels Safe At This Time Smoking Status: Former smoker Tobacco Type: cigarettes ; Cigarettes Per Day: 15 ; Do You Dip or Chew Tobacco: No ; Second Hand Exposure: No ; Tobacco Cessation Education Requested by Patient: No Hx Alcohol Use: Yes Hx Substance Use: Yes substance use type: prescription drug Substance Use Type Other:: lorazepam Last Used Substance: Unknown Review of Systems Review of Systems: Constitutional: No fever, sweats or chills Eyes: No diplopia, no worsening or blurred vision ENT: normal hearing, no trouble swallowing Respiratory: No cough, sputum, dyspnea at rest or on exertion Cardiovascular: No chest pain, tightness or palpitations Abdomen: + pain, +nausea, +vomiting, no diarrhea or constipation Musculoskeletal: No joint pain, calf pain, swelling Neurologic: No weakness, numbness/tingling, or balance problems Psychiatric: No anxiety or depression Skin: No rash or itch Physical Exam Physical Exam: General: awake, alert, no apparent distress, + lights off in room, curled up on left side, appears tired Head: Normocephalic, atraumatic ENT: PERRL, EOMI, no pharyngeal exudate, mucous membranes moist Chest: Clear to auscultation, on room air, no adventitious breath sounds Cardiac: Regular rate and rhythm, no murmur, no JVD, normal peripheral pulses, good capillary refill Abdominal: NABS x 4 quadrants, nondistended, soft, +tender to palpation, + guarding Extremities: Normal inspection, no peripheral edema or erythema, calfs nontender to palpation Psych: Normal mood and affect Neuro: AAO x 3, no gross motor deficits, speech is clear, no peripheral sensory deficits Results & Data Results & Data ([facility]) Vital Signs (Past 12 Hours) Vital Signs Temp Pulse Pulse Resp BP BP Pulse Ox 12/06/19 09:50 76 20 145/76 H 96 12/06/19 09:02 72 21 145/80 H 94 12/06/19 08:09 36.5 C 88 18 121/[address] abd pelvis IV con only CT DOSE: 289.30 mGy.cm HISTORY: abdominal pain, h/o etoh pancreatitis TECHNIQUE: Multiaxial CT images of the abdomen and pelvis were performed following the use of intravenous contrast. A dose lowering technique was utilized adhering to the principles of ALARA. COMPARISON STUDY: 09/25/2016 FINDINGS: Minimal chronic bibasilar interstitial change. Diffuse fatty replacement of the liver. Hepatomegaly. Edematous change of the pancreas. Moderate peripancreatic infiltrative change. Small amount of fluid within the left and to a lesser extent right paracolic gutter regions. Kidneys enhance uniformly. No evidence for drainable abscess collection or pseudocyst. Bowel pattern is nonobstructive. There is suggestion of slight wall edematous change of the colon. This potentially is a technical artifact. Trace amount of free fluid within the pelvic cul-de-sac. Small superior anterior wall ventral hernia. This is unchanged from the prior study. IMPRESSION: 1. Pancreatitis. 2.. Pancreas is edematous with evidence for moderate to rather significant peripancreatic infiltrative change. 3. Mild abdominal and pelvic ascites. 4. Diffuse fatty replacement of the liver. 5. No evidence for drainable abscess collection or obstructive change. ACT 112: Negative or not required by law. The above report was generated using voice recognition software. It may contain grammatical, syntax or spelling errors. Electronically signed by: Chay Cordova M.D. 12/06/2019 9:55 AM XR chest 1V portable CLINICAL HISTORY: Chest Pain dyspnea COMPARISON STUDY: 04/13/2019 FINDINGS: The bones soft tissues and hemidiaphragms are normal. The cardiomediastinal silhouette is normal. The lungs are clear. The pulmonary vasculature is normal. IMPRESSION: Negative chest. ACT 112: Negative or not required by law. The above report was generated using voice recognition software. It may contain grammatical, syntax or spelling errors. Electronically signed by: Chay Cordova M.D. 12/06/2019 8:46 AM ECG Additional Comments: 06-DEC-2019 08:58:22 [facility]-EDSTAT ROUTINE RETRIEVAL Normal sinus rhythm Septal infarct , age undetermined Abnormal ECG When compared with ECG of 16-MAR-2009 18:08, Inverted T waves have replaced nonspecific T wave abnormality in Anterior leads 25mm/s 10mm/mV 150Hz 9.0.9 12SL 241 STEPHON: 16 Referred by: REFERRED SELF Unconfirmed Vent. rate 74 BPM CA interval 128 ms QRS duration 76 ms QT/QTc 394/437 ms P-R-T axes 54 72 71 Code Status & VTE Plan Code Status Ful code - discussed with pt at bedside Supervising Physician Co-Signing Physician Notes I personally saw and examined the patient. I verified all benson points and agree with OLIVIER Siddiqi with the following exceptions and/or additions: 54-year-old female with longstanding alcohol use disorder and prior pancreatitis. Presents to the ER with 2-day history epigastric pain and nausea. She reports increased alcohol intake from however usual due to increased stresses with her daughter giving up her dog to the patient and living with her. 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 She notes taking both Ritalin for attention deficit disorder and lorazepam for anxiety daily in the morning. She reports since coming to the ER she is improving with IV fluids and pain medication given. Currently still does not have an appetite. O/E patient is ill-appearing, no acute distress, epigastric tenderness to palpation without guarding or rebound tenderness, bowel sounds normal A/P Pancreatitis - presumed alcohol induced from history and normal bilirubin. Prior episode in Jul 2015 thought to be due to alcohol (three brandys/day noted in GI consult at that time) +/- carbamazepine use. Will get lipid panel in AM for completeness. IV fluids, pain and nausea medications as above. Trend lipase. Alcohol use disorder - last alcohol drink 5 days prior by history and alcohol level <3 on admission therefore low suspicion of her going through alcohol withdrawal but will start AWSS with lorazepam PRN Elevated LFTs - interestingly AST is lower than ALT, however still suspect this is alcohol induced rather than biliary obstruction given normal bilirubin. PTINR/Plt WNL. Hepatomegaly with fatty liver changes on CT. Gallbladder not mentioned on CT report which I had initially assumed to mean this was surgical absent however on comparison images gallbladder is present and similar to previous without CBD dilatation from my read. If LFTs uptrending will need MRCP/ERCP +/- GI consult Regarding her controlled substances I am concerned with her taking both ritalin and lorazepam together, especially with her alcohol use. PDMP was checked independently however and this appears to be her longstanding regimen. Would hesitate to add opiates to this on discharge but certainly appropriate for inpatient use. PG Care Time/CCT Total # of Minutes Spent Total Time Spent with Patient: Total time spent is greater than 50% in coordination of care (as documented) at patient's floor/unit and/or counseling patient: Coding Level of Care Code 88636 Initial Inpt Care Lvl 3 Diagnoses Pancreatitis K85.90 Bipolar 2 disorder F31.81 ADD (attention deficit disorder) F98.8 Alcohol use Z72.89 History of tobacco use Z87.891 DVT prophylaxis Z29.9
[2019-12-06] MEDS ORDERED: ACETAMINOPHEN 325 MG TAB PO PRN (10:44)
[2019-12-06] MEDS ORDERED: MoRPHine SULFATE 2 MG/ML CARP IV STA (11:12)
[2019-12-06] MEDS: POTASSIUM CHLORIDE / WTR 10 MEQ/100 ML PLCT IV SCH ×2 (11:27→13:35)
[2019-12-06] MEDS: SODIUM CHLORIDE 0.9% 1000ML 1,000 ML IV SCH ×2 (11:27→19:27)
--- NOTE | 2019-12-06 11:32 | Electrocardiogram Report ---
Test Reason : Blood Pressure : / mmHG Vent. Rate : 074 BPM Atrial Rate : 074 BPM P-R Int : 128 ms QRS Dur : 076 ms QT Int : 394 ms P-R-T Axes : 054 072 071 degrees QTc Int : 437 ms Normal sinus rhythm Septal infarct , age undetermined Abnormal ECG When compared with ECG of 16-MAR-2009 18:08, Inverted T waves have replaced nonspecific T wave abnormality in Anterior leads Confirmed by Geovanni Goncalves ([id number]) on 12/06/2019 11:32:27 AM Referred By: REFERRED SELF Confirmed By:Geovanni Goncalves
[2019-12-06] MEDS: MoRPHine SULFATE 4 MG/ML 1 ML CARP\\VIAL IV PRN ×4 (12:32→22:13)
[2019-12-06] MEDS: ONDANSETRON INJ 2 MG/ML 2 ML VIAL IV PRN (12:32)
[2019-12-06 16:37] LABS: Appearance Urine Cloudy (Clear); Bacteria Urine Automated 4+ (Negative); Bilirubin Urine Negative (Negative); Blood Urine Negative (Negative); Color Urine Dark Yellow; Epithelial Cell Urine Auto >30 /lpf (0-5); Glucose Urine UA Negative (Negative); Ketones Urine Negative (Negative); Leukocyte Esterase Urine Negative (Negative); Nitrite Urine Positive (Negative); Protein Urine Trace (Negative); RBC Urine Automated 0-4 /hpf (0-4); Specific Gravity Urine > 1.045 (1.000-1.030); Urobilinogen Urine Negative (Negative)
[2019-12-06] MEDS: QUETIAPINE FUMARATE 25 MG TABLET PO SCH (21:18)
[2019-12-07] MEDS ORDERED: LORazepam 1 MG TAB PO PRN ×2 (00:04→10:29)
[2019-12-07] MEDS: SODIUM CHLORIDE 0.9% 1000ML 1,000 ML IV SCH ×2 (01:10→07:54)
[2019-12-07] MEDS: MoRPHine SULFATE 4 MG/ML 1 ML CARP\\VIAL IV PRN ×6 (02:13→19:59)
[2019-12-07 06:40] LABS: Basophils # (auto) 0.01 K/uL (0-0.2); Basophils % (auto) 0.1 %; Eosinophils # (auto) 0.08 K/uL (0-0.5); Eosinophils % (auto) 0.8 %; Hematocrit (blood only) 32.3 % (37-47); Hemoglobin 10.7 g/dL (12.0-16.0); Immature Granulocytes # (auto) 0.03 K/uL (0.00-0.02); Immature Granulocytes % (auto) 0.3 %; Lymphocytes # (auto) 0.99 K/uL (1.2-3.4); Lymphocytes % (auto) 10.1 %; Mean Corpuscular Hemoglobin 34.5 pg (25-34); Mean Corpuscular Hgb Conc 33.1 g/dL (32-36); Mean Corpuscular Volume 104.2 fL (80-100); Mean Platelet Volume 9.2 fL (7.4-10.4); Monocytes # (auto) 0.75 K/uL (0.11-0.59); Monocytes % (auto) 7.6 %; Neutrophils # (auto) 7.99 K/uL (1.4-6.5); Neutrophils % (auto) 81.1 %; Platelet Count 275 K/uL (130-400); RDW Coefficient of Variation 17.9 % (11.5-14.5); RDW Standard Deviation 66.5 fL (36.4-46.3); White Blood Count 9.85 K/uL (4.8-10.8)
[2019-12-07 07:11] LABS: Albumin Level 1.9 gm/dl (3.4-5.0); Calcium 7.2 mg/dl (8.5-10.1); Est GFR (African American) 138.8; Est GFR (Non-African American) 119.8; Potassium 3.6 mmol/L (3.5-5.1)
[2019-12-07 07:26] LABS: Albumin Globulin Ratio 0.6 (0.9-2); Bilirubin,Total 0.8 mg/dl (0.2-1); Globulin 3.2 gm/dl (2.5-4.0); Total Protein 5.1 gm/dl (6.4-8.2)
[2019-12-07] MEDS: MULTIVITAMIN TAB PO SCH (07:55)
[2019-12-07] MEDS ORDERED: FOLIC ACID 400 MCG TAB PO SCH (09:00)
[2019-12-07] MEDS ORDERED: LORazepam 1 MG TAB PO SCH (09:00)
[2019-12-07] MEDS ORDERED: THIAMINE HCL 100 MG TAB PO SCH (09:00)
[2019-12-07] MEDS: ONDANSETRON INJ 2 MG/ML 2 ML VIAL IV PRN ×2 (10:23→17:24)
[2019-12-07] MEDS ORDERED: LORazepam 1 MG/2 ML VIAL IV PRN (10:29)
[2019-12-07] MEDS ORDERED: NICOTINE 21 MG/24 HR TDSY TD PRN (10:35)
[2019-12-07] MEDS ORDERED: MULTI-VITAMIN INFUSION 10 ML, THIAMINE HCL 100 MG, FOLIC ACID 1 MG in SODIUM CHLORIDE 0... IV ONE (11:00)
[2019-12-07] MEDS ORDERED: THIAMINE HCL 500 MG in 0.9 % SODIUM CHLORIDE 100 ML IV ONE (11:00)
[2019-12-07] MEDS: FOLIC ACID 1 MG TAB PO SCH (11:01)
--- NOTE | 2019-12-07 11:43 | Hospitalist Progress Note ---
Date of Service December 07, 2019 Assessment & Plan (1) Acute pancreatitis: Linnette is a 54-year-old female with regular daily alcohol intake who was admitted for acute pancreatitis. Acute pancreatitis suspected 2/2 chronic alcohol intake No leukocytosis, CTabdomen shows pancreatitis with mild ascites and fatty liver change without signs of necrosis on admission Lipase 1640, alk phos 371, AST 71, ALT 105. Suspect acute due to chronic daily intake, no signs of biliary tree dilation on CT Patient endorses chronic daily alcohol use with last period of sobriety over 1 year ago. At least 3 drinks per day, last drink shortly before admission Thiamine 500 mg IV x1, 250 mg IV x3 doses, then 100 mg daily. Signs of macrocytic anemia on CBC, no signs of acute Warnicke's encephalopathy Received NSS on admission, converted to banana bag x1, then LR 150-200 cc/h Pain control with morphine 2 mg - 4 mg scale every 2 hours as needed. Caution with lorazepam for [place] protocol, regular assessment of cognitive and respiratory status CMP daily, CBC daily Do not trend lipase GERD with hiatal hernia - increased risk for ulceration - PPI, consider EGD as outpatient Chronic alcohol intake, no previous history of delirium tremens or seizure, history of tremor Signs of macrocytic anemia as noted above, thiamine as noted above AWSS Patient established with alcohol counselor as outpatient. Recommend continued counseling and reassessment daily while inpatient. Patient contemplative. Status post 1 banana bag. Bipolar disorder Continue Seroquel 50 mg nightly ADD On methylphenidate 20 every morning with lorazepam outpatient Recommend assessment of lorazepam with methylphenidate combination as outpatient, note that her daily use of lorazepam as outpatient may increase her C1 needs or put her at higher risk for seizure Continue to follow, defer methylphenidate at this time Tobacco dependence: Had quit 1.5 months ago, recently relapsed with cigarette use. Nicotine patch 21 mcg for cravings. May add lozenges if needed. DVT prophylaxis: SCDs FEN GI: N.p.o. + meds, advance to clears when patient feels she is able to tolerate, lactated Ringer's at 200 x 12 hours then decrease to 125 or if signs of volume overload develop CODE STATUS: Full code (2) Abdominal pain: (3) Acute hypokalemia: (4) Transaminitis: (5) Bipolar 2 disorder: (6) Alcohol use: (7) DVT prophylaxis: (8) History of tobacco use: (9) ADD (attention deficit disorder): Admission and Anticipated Discharge Date Admission Date: December 06, 2019 Supervising Physician Co-Signing Physician Notes Attending attestation Pt seen and examined in concert with Dr. Rocha. In agreement with the documented findings as noted in the resident documentation with any exceptions or additions as noted here. Persistent epigastric (chronic) and LUQ (acute) pain accompanied by nausea considerably improved from admission and moderately well controlled on current regimen. On examination, S1/S2 nl RRR no MCG. CTAB. Abd TTP epigastrically and LUQ, BS+ve Acute pancreatitis in the setting of chronic etOH use and smoking - hydration with progression to clears when tolerable. Pain control as noted. Trend LFTs EtOH abuse - withdrawal protocol as noted with addition of thiamine and banana bag, monitor for worsening tremor & agitation GERD with hiatal hernia - increased risk for ulceration - PPI, consider EGD as outpatient Else see resident documentation as noted. Jimena Anglin is a 54-year-old female with regular daily alcohol intake who was admitted for acute pancreatitis. She reports she continues to feel terrible, and feels very shaky today. She continues to have left lower and left upper quadrant discomfort and epigastric discomfort. She denies fevers, chills, or sweats. Denies chest pain or shortness of breath. She is not sure if meals have worsened her pain in the past, but notes she has longstanding history of irritable bowel syndrome with intermittent diarrhea. She endorses daily alcohol intake providing unclear details on exact volume, but drinks mostly boxed wine at least 3 drinks per day. She last went without alcohol approximately 1 year ago but reports she felt very tremulous after couple of days and when she started drinking again. She has not experienced other withdrawal symptoms in the past, has not had any current or past hallucinations, and does not have a history of seizure. 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 Alcohol does not seem to help her tremor. Denies other neurologic changes including focal weakness or sensory change. She expresses sadness and notes that she sees a alcohol counselor has not been able to remain sober in the last year. Review of Systems Review of Systems: Constitutional: Denies fever, chills. Endorses fatigue Eyes: Denies acute vision change ENT: Denies ear pain, sore throat, sinus pain Cardiovascular: Denies Chest pain, chest pressure, palpitations, extremity swelling Respiratory: Denies shortness of breath, cough, sputum production, difficulty breathing Gastrointestinal: Endorses abdominal pain as noted in HPI Genitourinary: Denies dysuria Musculoskeletal: Denies focal weakness, endorses tremor in her hands Integumentary:Denies rash, lesions, bruising Neurological: Denies headache, numbness, tingling, focal weakness Physical Exam Physical Exam: General: A&Ox3. Tearful. Cooperative. HEENT: Atraumatic, normocephalic. Visual acuity and hearing grossly intact. Pulm: CTAB A&P. -wheezes, -rales, -rhonchi. Symmetrical chest rise. No increase work of breathing. No respiratory distress. Cardiac: RRR, -mrg. Radial pulses intact and symmetrical. Abdominal: Focally tender to palpation in the epigastrium, right upper quadrant and mid right lower quadrant. No rebound tenderness. Abdomen soft. Bowel so unds intact. CN II: Pupils are equal and react to light and accomidation. Visual acuity grossly intact. CN III, IV, : At primary gaze, there is no eye deviation. EoM intact without nystagmus. CN VII: No facial asymmetry CN VII: Hearing is grossly intact. CN IX, X: Phonation is normal without dysarthria. CN XI: Head turning and shoulder shrug are intact CN XII: Tongue protrudes midline. Sensory: Sensation to soft touch intact in fingertips and toes bilaterally without deficit or asymmetry. Strength: RUE: Elbow flexion/extension, finger flexion/extension, precision machinist strength, interosseous 5/5 LUE: Elbow flexion/extension, finger flexion/extension, precision machinist strength, interosseous 5/5 RLE: Ankle plantar flexion/dorsiflexion 5/5 LLE: Ankle plantar flexion/dorsiflexion 5/5 Results & Data Results & Data ([facility]) Vital Signs (Past 12 Hours) Vital Signs Temp Pulse Resp BP Pulse Ox 12/07/19 07:15 36.9 C 105 H 18 112/71 94 Resident Activity Tracking Resident Involvement: Resident Care Provided Care Provided: Adult Hospital Medicine (1) Acute pancreatitis Acute pancreatitis complication: unspecified Pancreatitis type: unspecified pancreatitis type Qualified Code(s): K85.90 - Acute pancreatitis without necrosis or infection, unspecified
[2019-12-07] MEDS ORDERED: MAGNESIUM SULFATE / D5W 1 GM/100 ML BAG IV ONE (12:00)
[2019-12-07] MEDS: POTASSIUM CHLORIDE / WTR 10 MEQ/100 ML PLCT IV SCH ×3 (12:15→14:27)
[2019-12-07] MEDS: MAGNESIUM OXIDE 400 MG TAB PO SCH (12:15)
[2019-12-07 12:30] LABS: Folate (Folic Acid) > 24.00 ng/ml (>5.38); Vitamin B12 1827 pg/ml (211-911)
[2019-12-07] MEDS: LACTATED RINGER'S 1,000 ML IV SCH (17:00)
[2019-12-07] MEDS: PANTOprazole 40 MG TAB PO SCH (18:38)
[2019-12-07] MEDS: FAMOTIDINE 20 MG in SYRINGE 3 ML IV SCH (21:52)
[2019-12-07] MEDS: SODIUM CHLORIDE 0.9% IV SCH (22:04)
[2019-12-07] MEDS: QUETIAPINE FUMARATE 25 MG TABLET PO SCH (22:04)
[2019-12-07] MEDS: THIAMINE HCL IV SCH (22:04)
[2019-12-08] MEDS: LACTATED RINGER'S 1,000 ML IV SCH ×4 (00:48→23:53)
[2019-12-08] MEDS: MoRPHine SULFATE 2 MG/ML CARP IV PRN ×4 (00:52→21:24)
[2019-12-08 07:00] LABS: Basophils # (auto) 0.01 K/uL (0-0.2); Basophils % (auto) 0.1 %; Eosinophils # (auto) 0.17 K/uL (0-0.5); Eosinophils % (auto) 1.7 %; Hematocrit (blood only) 31.3 % (37-47); Hemoglobin 10.2 g/dL (12.0-16.0); Immature Granulocytes # (auto) 0.03 K/uL (0.00-0.02); Immature Granulocytes % (auto) 0.3 %; Lymphocytes # (auto) 1.17 K/uL (1.2-3.4); Lymphocytes % (auto) 11.5 %; Mean Corpuscular Hemoglobin 34.8 pg (25-34); Mean Corpuscular Hgb Conc 32.6 g/dL (32-36); Mean Corpuscular Volume 106.8 fL (80-100); Mean Platelet Volume 9.2 fL (7.4-10.4); Monocytes # (auto) 1.03 K/uL (0.11-0.59); Monocytes % (auto) 10.1 %; Neutrophils # (auto) 7.75 K/uL (1.4-6.5); Neutrophils % (auto) 76.3 %; Platelet Count 296 K/uL (130-400); RDW Coefficient of Variation 18.1 % (11.5-14.5); RDW Standard Deviation 69.2 fL (36.4-46.3); Red Blood Count 2.93 M/uL (4.2-5.4); White Blood Count 10.16 K/uL (4.8-10.8)
[2019-12-08 07:02] LABS: Albumin Globulin Ratio 0.5 (0.9-2); Albumin Level 1.8 gm/dl (3.4-5.0); BUN Creatinine Ratio 15.1 (10-20); Bilirubin,Total 1.2 mg/dl (0.2-1); Calcium 8.2 mg/dl (8.5-10.1); Est GFR (African American) 142.4; Est GFR (Non-African American) 122.9; Globulin 3.7 gm/dl (2.5-4.0); Potassium 3.7 mmol/L (3.5-5.1); Total Protein 5.5 gm/dl (6.4-8.2)
--- NOTE | 2019-12-08 07:31 | Hospitalist Progress Note ---
Date of Service December 08, 2019 Assessment & Plan (1) Acute pancreatitis: Linnette is a 54-year-old female with regular daily alcohol intake who was admitted for acute pancreatitis. Acute pancreatitis suspected 2/2 chronic alcohol intake - Lipase > 4000 on admission, CT scan showing inflamed pancreases with mild ascites, no signs of necrosis on admission - etiology suspected to be secondary to chronic alcohol intake + smoking. TG normal. Calcium normal. No gallstones or biliary duct distention noted on CT scan - WBC normal. alk phos 390, AST 117, ALT 102. Patient continues to require IV morphine for pain control - Patient + 8L of IVF; Lactated Ringers running at 125mls/hr - advance diet as tolerated beginning with clear liquids Alcohol Use Disorder - currently on AWSS protocol; score of 3 today, up from 2 - Patient endorses chronic daily alcohol use (3 drinks per day); last drink shortly before admission - last period of sobriety over 1 year ago - Signs of macrocytic anemia on CBC, no signs of acute Warnicke's encephalopathy - no previous history of delirium tremens or seizure, + history of tremor Thiamine 500 mg IV x1, 250 mg IV x3 doses, then 100 mg daily. - Caution with lorazepam for protocol, regular assessment of cognitive and respiratory status Patient established with alcohol counselor as outpatient. Recommend continued counseling and reassessment daily while inpatient. patient in contemplative stage of change Macrocytic Anemia - Hgb 10.2 , MCV 106 - folate and B12 WNL Bipolar disorder Continue Seroquel 50 mg nightly ADD On methylphenidate 20 every morning with 1mg lorazepam Recommend reassessment of lorazepam with methylphenidate combination as outpatient, note that her daily use of lorazepam as outpatient may put her at higher risk for seizure hold methylphenidate at this time Tobacco dependence - Had quit 1.5 months ago, recently relapsed with cigarette use. - Nicotine patch 21 mcg for cravings. May add lozenges if needed. DVT prophylaxis: SCDs FEN GI: Advance to clear liquids Dispo: floor CODE STATUS: Full code (2) Abdominal pain: (3) Acute hypokalemia: (4) Transaminitis: (5) Bipolar 2 disorder: (6) Alcohol use: (7) DVT prophylaxis: (8) History of tobacco use: (9) ADD (attention deficit disorder): Admission and Anticipated Discharge Date Admission Date: December 06, 2019 Supervising Physician Co-Signing Physician Notes I personally examined the patient and verified all benson points of history and exam, discussed case, and agree with decision making with Dr Tobin. cheryle still hurts but way better - down to about a 3/10. more periumbilical now. ice/sips going well. worried about missing more work. drinks ~3 drinks a day but dtr threw away all EtOH at home. notes that somewhere between boredom and trying to get to sleep at night is why she drinks, but thinks she could quit but doesn't really know what she'll do. vitals noted nad heent nc at mmm breathing unlabored. abd soft mild distention mild epigastric ttp no guarding no rebound. EtOH related pancreatitis -improving. -advance diet, follow. -hopefully can discharge by tomorrow if she's tolerating diet OK -counselled on critical need for EtOH cessation -otherwise as above. Subjective No acute events overnight. Patient expresses desire for discharge, although she is still requiring IV pain medication. Review of Systems Gastrointestinal: + abdominal pain Physical Exam Constitutional: WD/WN, vitals as above Eyes: + anicteric sclerae ENMT: external ear and nose normal, oropharynx normal Respiratory: normal respiratory effort Gastrointestinal (Abdomen): Inspection/Auscultation: abdomen normal to inspection; abdomen not distended Percussion/Palpation: + abdomen tender (epigastrium ) and abdomen soft; no hepatosplenomegaly Skin: no rashes, warm and dry Neurologic: Motor/Sensory: no tremor Psychiatric: A+Ox3, euthymic affect Results & Data Results & Data ([facility]) Vital Signs (Past 12 Hours) Vital Signs Temp Pulse Resp BP Pulse Ox 12/07/19 23:21 36.9 C 94 H 16 99/64 L 93 Resident Activity Tracking Resident Involvement: Resident Care Provided Care Provided: Adult Hospital Medicine (1) Acute pancreatitis Acute pancreatitis complication: unspecified Pancreatitis type: unspecified pancreatitis type Qualified Code(s): K85.90 - Acute pancreatitis without necrosis or infection, unspecified
[2019-12-08] MEDS: THIAMINE HCL IV SCH ×2 (08:28→12:46)
[2019-12-08] MEDS: SODIUM CHLORIDE 0.9% IV SCH ×2 (08:28→12:46)
[2019-12-08] MEDS: PANTOprazole 40 MG TAB PO SCH (08:29)
[2019-12-08] MEDS: FAMOTIDINE 20 MG in SYRINGE 3 ML IV SCH ×2 (08:29→20:47)
[2019-12-08] MEDS: MAGNESIUM OXIDE 400 MG TAB PO SCH (09:36)
[2019-12-08] MEDS: FOLIC ACID 1 MG TAB PO SCH (09:36)
[2019-12-08] MEDS: MULTIVITAMIN TAB PO SCH (09:36)
[2019-12-08] MEDS: MoRPHine SULFATE 4 MG/ML 1 ML CARP\\VIAL IV PRN (09:39)
[2019-12-08] MEDS: ONDANSETRON INJ 2 MG/ML 2 ML VIAL IV PRN (13:19)
--- NOTE | 2019-12-08 18:11 | Billing Data ---
Date of Service December 08, 2019 Coding Level of Care Code 64061 Subseq Hosp Care Lvl 3
[2019-12-08] MEDS: QUETIAPINE FUMARATE 25 MG TABLET PO SCH (20:45)
[2019-12-09 05:29] LABS: Basophils # (auto) 0.01 K/uL (0-0.2); Basophils % (auto) 0.1 %; Eosinophils # (auto) 0.12 K/uL (0-0.5); Eosinophils % (auto) 1.2 %; Hematocrit (blood only) 28.8 % (37-47); Hemoglobin 9.2 g/dL (12.0-16.0); Immature Granulocytes # (auto) 0.02 K/uL (0.00-0.02); Immature Granulocytes % (auto) 0.2 %; Lymphocytes # (auto) 0.86 K/uL (1.2-3.4); Lymphocytes % (auto) 8.2 %; Mean Corpuscular Hemoglobin 33.8 pg (25-34); Mean Corpuscular Hgb Conc 31.9 g/dL (32-36); Mean Corpuscular Volume 105.9 fL (80-100); Mean Platelet Volume 9.1 fL (7.4-10.4); Monocytes # (auto) 0.97 K/uL (0.11-0.59); Monocytes % (auto) 9.3 %; Neutrophils # (auto) 8.45 K/uL (1.4-6.5); Platelet Count 350 K/uL (130-400); RDW Standard Deviation 68.2 fL (36.4-46.3); Red Blood Count 2.72 M/uL (4.2-5.4); White Blood Count 10.43 K/uL (4.8-10.8)
[2019-12-09 05:58] LABS: Albumin Level 1.6 gm/dl (3.4-5.0); BUN Creatinine Ratio 13.3 (10-20); Creatinine Clr Calc Pharmacy 155.8 ml/min; Est GFR (African American) 141.2; Est GFR (Non-African American) 121.8; Potassium 3.8 mmol/L (3.5-5.1)
[2019-12-09] MEDS: MoRPHine SULFATE 2 MG/ML CARP IV PRN (05:59)
[2019-12-09 06:00] LABS: Albumin Globulin Ratio 0.4 (0.9-2); Bilirubin,Total 1.1 mg/dl (0.2-1); Globulin 3.8 gm/dl (2.5-4.0); Total Protein 5.4 gm/dl (6.4-8.2)
[2019-12-09] MEDS: LACTATED RINGER'S 1,000 ML IV SCH ×2 (08:06→10:49)
[2019-12-09] MEDS ORDERED: THIAMINE HCL 100 MG in SYRINGE 9 ML IV SCH (09:00)
[2019-12-09] MEDS: MAGNESIUM OXIDE 400 MG TAB PO SCH (09:05)
[2019-12-09] MEDS: FOLIC ACID 1 MG TAB PO SCH (09:05)
[2019-12-09] MEDS: PANTOprazole 40 MG TAB PO SCH (09:05)
[2019-12-09] MEDS: MULTIVITAMIN TAB PO SCH (09:05)
[2019-12-09] MEDS: FAMOTIDINE 20 MG in SYRINGE 3 ML IV SCH (09:57)
--- NOTE | 2019-12-09 10:56 | Discharge Summary ---
Date of Service December 09, 2019 Admission HPI Per Admitting Provider This is a 54 yo F with PMHx of pancreatitis, tobacco use with 27 years 1 ppd, Bipolar disorder, attention disorder on methylphenidate, who presents with worsening abdominal pain. This began 2 days ago. It is primarily epigastric in nature, radiating to her back, waxes and wanes. 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 She went to her co-workers home and took some ibuprofen for pain, which did not help. Then proceeded to come to the ER early this morning. Her pain was rated 10/10, currently a 7/10, nausea improved. Pt drinks bacardi rum, "3 alcoholic drinks daily on average". She admits to increased alcohol consumption over the past 3 months on a daily basis during the pandemic. Denies needing a drink to wake up, go to work, or hx of seizure. She admits to feeling shaky at times, but does not admit that alcohol improves the shaking. Last episode of pancreatitis was in 2016 but was deemed drug induced by suspected Tileptal as inciting medication, however it is unknown if she was also drinking alcohol at that time. She denies being on any other antiepileptic for mood swings with bipolar, but does take seroquel at night. She follows with [facility] as outpt with Aurea Jensen. PDMP checked and reveals she has been filling lorazepam and methylphenidate Rx routinely. Lipase elevated at 4533, CT reviewed indicating acute pancreatitis. Admission Exam Per Admitting Provider General: awake, alert, no apparent distress, + lights off in room, curled up on left side, appears tired Head: Normocephalic, atraumatic ENT: PERRL, EOMI, no pharyngeal exudate, mucous membranes moist Chest: Clear to auscultation, on room air, no adventitious breath sounds Cardiac: Regular rate and rhythm, no murmur, no JVD, normal peripheral pulses, good capillary refill Abdominal: NABS x 4 quadrants, nondistended, soft, +tender to palpation, + guarding Extremities: Normal inspection, no peripheral edema or erythema, calfs nontender to palpation Psych: Normal mood and affect Neuro: AAO x 3, no gross motor deficits, speech is clear, no peripheral sensory deficits Principal Diagnosis Alcoholic Pancreatitis Discharge Exam Constitutional WD/WN, vitals as above Eyes + anicteric sclerae ENMT external ear and nose normal, oropharynx normal Respiratory normal respiratory effort Gastrointestinal (Abdomen) Inspection/Auscultation: abdomen normal to inspection; abdomen not distended Percussion/Palpation: + abdomen tender (epigastrium ) and abdomen soft; no hepatosplenomegaly Skin no rashes, warm and dry Neurologic Motor/Sensory: no tremor Psychiatric A+Ox3, euthymic affect Discharge Data Allergies Allergy/AdvReac Type Severity Reaction Status Date / Time Penicillins Allergy Unknown Verified 12/06/19 08:58 Sulfa (Sulfonamide Allergy Unknown Verified 12/06/19 08:58 Antibiotics) Consultations 12/06/19 10:20 ED Decision to Admit Stat 12/06/19 10:43 Consult Case Management - Discharge Planning Routine Ordered Studies 12/06/19 08:26 CT abd pelvis IV con only Stat Hospital Course (1) Acute pancreatitis: Linnette is a 54-year-old female with regular daily alcohol intake who was admitted for acute pancreatitis. Acute pancreatitis suspected 2/2 chronic alcohol intake Lipase > 4000 on admission, CT scan showing inflamed pancreas with mild ascites, no signs of necrosis on admission. Etiology suspected to be secondary to chronic alcohol intake + smoking. TG normal. Calcium normal. No gallstones or biliary duct distention noted on CT scan. Patient did have transaminitis, although this appears to be a chronic finding and without the presence of gallstones is likely related to alcohol intake. WBC normal, no concern for infection. Patient was treated with IV fluids and IV pain medication. Diet was advanced to full liquids + bland solids (crackers). Patient was advised to remain in hospital for further monitoring as diet was advanced, but she insisted on being discharged due to employment obligations. She was counseled on the importance of advancing diet slowly. Outpatient items to do: monitor pain Alcohol Use Disorder Patient endorses chronic daily alcohol use (>3 drinks per day); last period of sobriety over 1 year ago. She had a tremor at times during her hospital stay, and was treated with a half dose of thiamine protocol.She also had signs of a macrocytic anemia, although folate and B12 levels were normal. She was strongly encouraged to quit drinking. Patient reports being established with alcohol counselor as outpatient. Recommend continued counseling individually or with AA. Currently in contemplative stage of change. Outpatient items to do: continued counseling toward cessation. Hypoalbuminemia Albumin level 1.6 on day of discharge. Patient reports poor daily eating habits (no breakfast, small bowel of soup for lunch, microwaveable dinner), likely calorie malnourished (related to EtOH abuse). Outpatient items to do: provide nutrition counseling Bipolar disorder Continue Seroquel 50 mg nightly ADD On methylphenidate 20 every morning with 1mg lorazepam. Her daily use of lorazepam as outpatient may put her at higher risk for seizure. Outpatient items to do: Recommend reassessment of lorazepam with methylphenidate combination as outpatient. Tobacco dependence Had quit 1.5 months ago, recently relapsed with cigarette use. Patient did not have cravings while in hospital. Outpatient items to do: consider pharmacotherapies for cessation (chantix, wellbutrn). (2) Abdominal pain: (3) Acute hypokalemia: (4) Transaminitis: (5) Bipolar 2 disorder: (6) Alcohol use: (7) DVT prophylaxis: (8) History of tobacco use: (9) ADD (attention deficit disorder): Total Time Total Time Spent Total Time Spent (In Minutes): <30 Discharge Plan Discharge Items Patient Disposition: Home - Self-Care Reason For Visit: PANCREATITIS Discharge Diagnosis: Alcoholic Pancreatitis Condition on Discharge: Fair Activity: Resume your previous activity Driving/Machine Use: No limitations Weightbearing: Full weightbearing Non-emergency contact: Primary Care Provider Call non-emergency contact if: your pain is worsening Follow-up/Referrals: Shira Mcduffie DO [Primary Care Provider] - 12/22/19 1:15 pm Diet: Regular Diet Comment: Progress as tolerated Addtl Attending Provider Instructions: You were hospitalized at [facility] for evaluation of abdominal pain. You were found to have pancreatitis, or inflammation of your pancreas. Pancreatitis The cause of your pancreatitis was your significant alcohol use and cigarette smoking. We treated your pancreatitis with pain medication, IVF fluids and anti- nausea medications. It takes some time for the inflammation in your pancreas to "cool down." After being admitted to the hospital, we advised you not to eat, as consuming food often times re-aggravates the inflammation. At the time of discharge, your abdomen was dandy tender and you did not have an appetite, however, you were able to tolerate a full liquid diet without an increase in your discomfort and nausea. We would have preferred for you to stay in the hospital for further monitoring, but you chose to leave on 12/09/19 in order to get back to your job. We recommend you advance you diet slowly - move to a small amount of bland, solid food (ie crackers). If this goes well, then slowly introduce larger amount of new foods. If you progress your diet too quickly (eat too much too soon) you have have a significant increase in abdominal pain and/or nausea. You may take over the counter pain medications as needed. You can reduce your risk of a recurrent episode of pancreatitis by quitting smoking and alcohol use. It is also important to keep your bowels moving. We recommend you use a laxative such as Miralax, starting with 3 doses daily until you are having regular bowel movements. Please see your primary care doctor within 1 week for close follow-up. Alcohol use We recommend you quit drinking due to its negative health implications. We would advise you to reach out to your counselor and/or begin to attend regular Alcoholics Anonymous meetings. Your primary care doctor can also help you with your alcohol use disorder (ie there are prescription medications you can take to help you stop drinking). Tobacco use In addition to contributing to your current episode of pancreatitis, tobacco has enormous, negative health implications. We recommend you quit smoking. Your PCP can also help you with smoking cessation. ADD We recommend you stop taking lorazepam with your daily methylphenidate. Pending Studies at Discharge: No Stand-Alone Forms: [facility], Smoking Cessation Medications and DC Order Prescriptions: Continued acetaminophen [Tylenol] 325 mg Tablet 650 mg PO UD PRN (Reason: Pain) RF: 0 methylphenidate HCl 20 mg tablet 10 mg PO QAM RF: 0 methylphenidate HCl 20 mg tablet 10 mg PO DAILY@1200 RF: 0 ibuprofen 200 mg Tablet 400 mg PO Q6H PRN (Reason: Pain) RF: 0 quetiapine 50 mg tablet 50 mg PO HS RF: 0 Discontinued lorazepam 1 mg tablet 1 mg PO QAM RF: 0 Discharge Orders: Discharge Order (Routine); Ordered 12/09/19 Ordered By: Negrita Tobin Admission Data Admit Date/Time: 12/06/19 10:41 Attending Provider: Valentin Simpson Admit Provider: Fortunato Monte Primary Care Provider: Shira Mcduffie Other Providers: Imani Siddiqi ; Fortunato Monte ; Arun Thompson Other Interventions: Discharge Summary Assessment (RN) Last Done: 12/09/19 10:33 DC Date/Time DO NOT enter until pt leaves facility: 12/09/19 11:10 Supervising Physician Co-Signing Physician Notes I personally examined the patient and verified all benson points of history and exam, discussed case, and agree with decision making with Dr Tobin. belldestini feeling better - still hurts some but eating better and very much wants to go home. no worsening pain or nausea after eating. feels somewhat constipated. vitals noted nad heent nc at mmm breathing unlabored. abd soft mild distention mild epigastric ttp no guarding no rebound. similar exam to yesterday overall, maybe slightly more distended lower but without worrisome features. EtOH related pancreatitis -improving. suspect worse distention is from constipation - discussed miralax for home use -she is strongly desirous of going home and understands risk/benefit and ongoing management - because of this, safe for home -tolerating diet -readdressed critical need for EtOH cessation -otherwise as above. Resident Activity Tracking Resident Involvement: Resident Care Provided Care Provided: Adult Hospital Medicine
--- NOTE | 2019-12-09 17:16 | Billing Data ---
Date of Service December 09, 2019 Coding Level of Care Code D/C Day Management <30 mins
== END 2019-12-09 11:10 | disposition home or self-care (01) | DRG 439 ==
LOC: ED 08:05 → SUATTDRO 10:41 → 2W 10:41 → 3N 12-07 14:31

== ENCOUNTER 2023-06-12 15:00 | Inpatient (IN) ==
--- NOTE | 2023-06-12 15:27 | ED Triage Note ---
Date of Service June 12, 2023 Provider in Triage Author: Darlyn Gutierrez History of Present Illness This patient was briefly evaluated while in triage. An abbreviated physical exam was performed. This patient is a 57-year-old Female who presents to the ED for evaluation of shortness of breath. She has had issues for over a month. She got sick around a month ago and took 10 days of antibiotics. She was still feeling somewhat sick after that. She had a follow up chest x-ray today and was called and told there was an abnormality and to come to the ER. Physical Exam VITALS: Vitals are noted on the nurse's note and reviewed by myself. GENERAL: This is a 57-year-old female, in no acute distress, well-developed well-nourished. HEART: Regular rate and rhythm without murmurs gallops or rubs. LUNGS: Decreased breath sounds in the right lower lobe. NEURO: Patient was alert and oriented to person place and time. Initial orders for labs and / or imaging were placed and patient was placed in the waiting area until a bed is available. Please see further documentation for the full ED course.
[2023-06-12 17:26] LABS: Albumin Globulin Ratio 1.2 (0.9-2); Albumin Level 4.2 gm/dl (3.4-5.0); BUN Creatinine Ratio 5.4 (10-20); Bilirubin,Total 0.5 mg/dl (0.2-1.0); Calcium 9.4 mg/dl (8.6-10.3); Creatinine Clr Calc Pharmacy 77.3 ml/min; Est GFR (African American) 105.7 ml/min; Est GFR (Non-African American) 91.2 ml/min; Globulin 3.6 gm/dl (2.5-4.0); Potassium 4.3 mmol/L (3.5-5.1); Total Protein 7.8 gm/dl (6.0-8.3)
[2023-06-12 17:37] LABS: INR 0.9 (0.9-1.1); Partial Thromboplastin Ratio 0.7; Prothrombin Time 9.9 Seconds (9.0-12.0)
[2023-06-12 17:45] LABS: Partial Thromboplastin Time < 20 Seconds (21-31)
[2023-06-12] MEDS ORDERED: OPTIRAY 320 125ml IV ONE (18:21)
--- NOTE | 2023-06-12 19:11 | CT Scan Report ---
CT ANGIOGRAM OF THE CHEST CLINICAL HISTORY: Dyspnea. Abnormal chest x-ray. COMPARISON STUDY: Chest x-ray dated 06/12/2023. Chest CT dated 03/16/2009. TECHNIQUE: Following the IV administration of 74 cc of Optiray 320, CT angiogram of the chest was per formed from the upper abdomen to the thoracic inlet utilizing the pulmonary embolus protocol. Images are reviewed in the axial, sagittal, and coronal planes. 3-D MIPS images are created and assessed. IV contrast was administered without complication. A dose lowering technique was utilized adhering to the principles of ALARA. CT DOSE: 630.75 mGy.cm FINDINGS: Thyroid: Imaged portions of the thyroid gland are normal in size and attenuation. Thoracic aorta: The thoracic aorta is normal in caliber and demonstrates standard 3-vessel arch anato my. No dissection is seen. Pulmonary vasculature: The pulmonary trunk is normal in caliber. There are no filling defects identif ied in main, lobar, or segmental pulmonary branches to suggest pulmonary embolus. Heart: The heart is normal in size and without pericardial effusion. Lungs and pleural spaces: There is a moderate to large right pleural effusion with atelectasis of the right lower lung. Pleural thickening and enhancement is suggested in the right lower lobe, and this effusion may be malignant. A small pleural effusion is seen on the left. Subpleural scarring anterior right lung may be treatment related. Impression live interseptal thickening is noted. Patchy groundg lass opacities are seen throughout both lungs. A 13 mm nodular opacity in the left lower lobe is seen on image 133. Mediastinum: There are mildly enlarged mediastinal lymph nodes. A precarinal node measures 11 mm in s hort axis. Teressa: Prominent hilar nodes measure up to 10 mm short axis. Axillae: Surgical clips are noted in the left axilla. There is no axillary lymphadenopathy. Upper abdomen: There are at least 2 hypodense lesions in the left lobe of the liver seen on images #2 5 and #13. These measure up to 12 mm and were not clearly seen on prior studies. These are suspicious for metastatic disease. Skeletal structures: The skeletal structures are osteopenic. There is mild chronic compression deform ity of T5. 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 The largest lesions are s een in the bodies of T5, T10, and T12.. There are chronic/healed left-sided rib fractures. Soft tissues: There are bilateral breast implants. IMPRESSION: 1. There is no evidence of pulmonary embolus in the main, lobar, or segmental pulmonary arteries. 2. Moderate to large right pleural effusion. Pleural thickening and enhancement is suggested at the r ight lung base, and a malignant effusion is not excluded. 3. A small pleural effusion is seen on the left. 4. Findings are highly suspicious for multifocal osteoblastic metastatic disease. 5. There are 2 low-attenuation left lobe liver lesions. These were not clearly seen on prior examinat ions and are also highly suspicious for metastatic disease. 7. Intralobular septal thickening suggests fluid overload/congestive change. Correlate clinically. 8. Patchy groundglass opacities throughout both lungs could represent mild pulmonary edema and/or an infectious/inflammatory pneumonitis. Again, correlate clinically. 9. A 13 mm nodular opacity in the left lower lobe is pathologically indeterminate. Neoplasm is not ex cluded. Attention at follow-up is recommended. 10. Mildly enlarged mediastinal lymph nodes are pathologically indeterminate. Attention at follow-up is recommended. 11. Additional findings as above. ACT 112: Positive. There are findings on this exam that require communication between the performing entity and the patient following Patient Test Result Information Act ([place] Act 112) guidelines. Electronically signed by: Alex Dwyer M.D. 06/12/2023 7:09 PM
--- NOTE | 2023-06-12 21:08 | History & Physical Report ---
Date of Service June 12, 2023 Assessment & Plan (1) Pleural effusion: Plan: 57yo female presenting with shortness of breath. Patient with moderate to large pleural effusion noted on CT chest as well as a 13mm LLL lung nodule, enlarged mediastinal lymph nodes, findings concerning for multifocal osteoblastic disease and 2 lesions in the left lobe of the liver. Concern for malignant process. Primary source unclear - consider lung - patient with long history of smoking >20 pack year. She has remote history of breast CA but was treated with bilateral mastectomy. She reports having an EGD and Colonoscopy in 2020 and was found to have an ulcer but otherwise unremarkable studies. -Admit to medical -Pulmonary consultation appreciated for possible thoracentesis -ASA on hold for now - to be resumed after thoracentesis (2) Bipolar 2 disorder: Plan: Chronic. Stable -Continue home medications - Topamax, Seroquel (3) ADD (attention deficit disorder): Plan: Chronic. Stable -Continue Ritalin at home dose History of Present Illness Chief Complaint: shortness of breath Primary Care Provider: Dany Armando DO Linnette Blackmon is a pleasant 57yo female with remote history of breast cancer (per patient she had Stage I breast cancer approximately 12 years ago and had a double mastectomy with breast reconstruction). Patient had a cough and shortness of breath in April before . She was seen at [facility] and had a CXR performed which showed a right hilar 3cm mass with large pleural effusion. She was treated with antibiotics and told that she should have a CT of the chest performed. Patient had a repeat CXR performed today by her PCP which revealed a moderate right sided pleural effusion as well as a 2.6 cm right midlung density. She was notified of the results and instructed to come to the ER for additional workup. She does report some shortness of breath noted several days ago as well as FLOWER and some orthopnea. She denies other complaints such as chest pain, palpitations, fever, chills or weight loss In the ER she is afebrile, HD stable Allergies Allergy/AdvReac Type Severity Reaction Status Date / Time Penicillins Allergy Severe THROAT Verified 02/13/23 16:03 CLOSES Sulfa (Sulfonamide Allergy Intermediate Hives Verified 02/13/23 16:03 Antibiotics) Home Medications Medication Instructions Recorded Confirmed Type aspirin 81 mg tablet,delayed 81 mg PO DAILY 08/20/20 11/08/22 History release quetiapine 100 mg tablet 100 mg PO HS 08/20/20 11/08/22 History methylphenidate HCl 20 mg tablet 10 mg PO BID 08/23/20 11/08/22 History quetiapine 50 mg tablet 25 - 50 mg PO HS 08/23/20 11/08/22 History topiramate 25 mg tablet (Topamax) 25 mg PO BID 08/23/20 11/08/22 History lorazepam 1 mg tablet 1 mg PO DAILY 09/30/20 11/08/22 History acetaminophen 500 mg tablet 500 mg PO Q6H PRN 03/22/21 11/08/22 History (Tylenol Extra Strength) ibuprofen 800 mg tablet 800 mg PO BID 03/23/22 11/08/22 History duloxetine 30 mg capsule,delayed 30 mg PO DAILY 11/08/22 11/08/22 History release (Cymbalta) pantoprazole 40 mg tablet,delayed 40 mg PO DAILY #30 tabs 12/25/22 Rx release doxycycline hyclate 100 mg capsule 100 mg PO BID #20 caps 02/14/23 Rx cyclobenzaprine 5 mg tablet 5 mg PO TID PRN MUSCLE SPASMS #90 04/05/23 Rx tabs gabapentin 800 mg tablet 800 mg PO TID #90 tabs 05/23/23 Rx Past Med/Surg History Medical History Alcoholism in remission History of breast cancer Right - 2011 Transaminitis Acute pancreatitis Alcohol use ADD (attention deficit disorder) Bipolar 2 disorder Pancreatitis Surgical History Status post mastectomy Family History Grandfather Colorectal cancer Grandmother Colorectal cancer Other Breast cancer Myocardial infarction Stroke Denies family history of Ovarian cancer Prostate cancer Social History Smoking Status: Current every day smoker Tobacco Type: Cigarettes Cigarettes Per Day: 15; Second Hand Exposure: No; Do You Dip or Chew Tobacco: No; Tobacco Cessation Education Requested by Patient: No Hx Alcohol Use: No Hx Substance Use: No Preferred Language: Thai Communication Ability: Effective Patient Safety Sitter Required: No Beliefs That Will Affect Care: None marital status: Current Living Situation: Alone current occupational status: employed Other Information That Helps Us Care for You: No Feels Safe at Home: Yes Safety Concerns: Feels Safe At This Time Diet: gluten free caffeine: Yes Physical Activity Frequency: Daily Assistive Devices: None Review of Systems Review of Systems: All systems reviewed & are unremarkable except as noted in HPI & below Physical Exam Physical Exam: General: patient resting comfortably, NAD, non-toxic in appearance, AA&O x 4 Skin: warm, dry, intact, no rashes or lesions HEENT: NC/AT, PERRL, EOMI, anicteric sclera, conjunctiva without injection, external ear normal to inspection and nontender, nares patent, moist mucus membranes, dentition intact, no oropharyngeal lesions, neck supple, trachea midline, no LAD, no thyromegaly, no JVD Heart: +S1/S2, regular, no m/r/g Lungs: equal air entry bilaterally, mildly diminished breath sounds in right mid-lung with bibasilar crackles. Abd: +BS, soft, NT/ND, no masses/organomegaly/ascites Ext: warm, 2+ pulses in UE/LE bilaterally, no clubbing/cyanosis or edema Neuro: nonfocal, patient AA&O x 4, speech intact, no facial droop, moving all extremities on command with equal strength 5/5 Results & Data Results & Data Vital Signs (Past 12 Hours) Vital Signs Temp Pulse Resp BP Pulse Ox O2 Del Method 06/12/23 15:24 36.0 C L 103 H 19 126/76 93 Room Air Laboratory Results Laboratory Results WBC 7.52 K/ul (4.8-10.8) 06/12/23 20:52 RBC 4.74 M/uL (4.20-5.40) 06/12/23 20:52 Hgb 13.5 g/dl (12.0-16.0) 06/12/23 20:52 Hct 39.9 % (37.0-47.0) 06/12/23 20:52 MCV 84.2 fL (80.0-100.0) 06/12/23 20:52 MCH 28.5 pg (25.0-34.0) 06/12/23 20:52 MCHC 33.8 g/dL (32.0-36.0) 06/12/23 20:52 RDW Std Deviation 52.8 fL (36.4-46.3) H 06/12/23 20:52 RDW Coeff of Kobe 17.2 % (11.5-14.5) H 06/12/23 20:52 Plt Count 533 K/uL (130-400) H 06/12/23 20:52 MPV 8.2 fL (9.4-12.4) L 06/12/23 20:52 Immature Gran % (Auto) 0.3 % 06/12/23 20:52 Neut % (Auto) 49.7 % 06/12/23 20:52 Lymph % (Auto) 39.5 % 06/12/23 20:52 Lipscomb % (Auto) 7.2 % 06/12/23 20:52 Eos % (Auto) 2.8 % 06/12/23 20:52 Baso % (Auto) 0.5 % 06/12/23 20:52 Neut # (Auto) 3.74 K/uL (1.40-6.50) 06/12/23 20:52 Lymph # (Auto) 2.97 K/uL (1.20-3.40) 06/12/23 20:52 Lipscomb # (Auto) 0.54 K/uL (0.11-0.59) 06/12/23 20:52 Eos # (Auto) 0.21 K/uL (0.00-0.50) 06/12/23 20:52 Baso # (Auto) 0.04 K/uL (0.00-0.20) 06/12/23 20:52 Immature Gran # (Auto) 0.02 K/uL (0.01-0.20) 06/12/23 20:52 Absolute Nucleated RBC Cancelled 06/12/23 16:54 Nucleated RBC % (auto) Cancelled 06/12/23 16:54 Neutrophils % (Manual) Cancelled 06/12/23 16:54 Band Neutrophils % Cancelled 06/12/23 16:54 Lymphocytes % (Manual) Cancelled 06/12/23 16:54 Prolymphocyte % Cancelled 06/12/23 16:54 Reactive Lymphs % (Man) Cancelled 06/12/23 16:54 Monocytes % (Manual) Cancelled 06/12/23 16:54 Eosinophils % (Manual) Cancelled 06/12/23 16:54 Basophils % (Manual) Cancelled 06/12/23 16:54 Metamyelocytes % (Man) Cancelled 06/12/23 16:54 Myelocytes % (Man) Cancelled 06/12/23 16:54 Promyelocytes % (Man) Cancelled 06/12/23 16:54 Blast Cells % (Manual) Cancelled 06/12/23 16:54 Plasma Cell % (Manual) Cancelled 06/12/23 16:54 Other Cells % Cancelled 06/12/23 16:54 Nucleated RBC % Cancelled 06/12/23 16:54 Neutrophils # (Manual) Cancelled 06/12/23 16:54 Band Neutrophils # Cancelled 06/12/23 16:54 Total Absolute Neuts Cancelled 06/12/23 16:54 Lymphocytes # (Manual) Cancelled 06/12/23 16:54 Prolymphocyte # Cancelled 06/12/23 16:54 Reactive Lymphs # Cancelled 06/12/23 16:54 Total Abs Lymphocytes Cancelled 06/12/23 16:54 Monocytes # (Manual) Cancelled 06/12/23 16:54 Eosinophils # (Manual) Cancelled 06/12/23 16:54 Basophils # (Manual) Cancelled 06/12/23 16:54 Metamyelocytes # (Man) Cancelled 06/12/23 16:54 Myelocytes # (Manual) Cancelled 06/12/23 16:54 Promyelocytes # (Man) Cancelled 06/12/23 16:54 Blast Cells # (Man) Cancelled 06/12/23 16:54 Plasma Cell # (Manual) Cancelled 06/12/23 16:54 Other Cells # Cancelled 06/12/23 16:54 Nucleated RBCs # (Man) Cancelled 06/12/23 16:54 Hypersegmented Neuts Cancelled 06/12/23 16:54 Hyposegmented Neuts Cancelled 06/12/23 16:54 Hypogranular Neuts Cancelled 06/12/23 16:54 Large Granular Lymphs Cancelled 06/12/23 16:54 # Lrg Granular Lymphs Cancelled 06/12/23 16:54 Hairy Cells Cancelled 06/12/23 16:54 Smudge Cells Cancelled 06/12/23 16:54 Toxic Granulation Cancelled 06/12/23 16:54 Toxic Vacuolation Cancelled 06/12/23 16:54 Dohle Bodies Cancelled 06/12/23 16:54 Nelia Rods Cancelled 06/12/23 16:54 Platelet Estimate Cancelled 06/12/23 16:54 Hypogranular Platelets Cancelled 06/12/23 16:54 Giant Platelets Cancelled 06/12/23 16:54 Platelet Satelliting Cancelled 06/12/23 16:54 RBC Morphology Cancelled 06/12/23 16:54 Polychromasia Cancelled 06/12/23 16:54 Hypochromasia Cancelled 06/12/23 16:54 Poikilocytosis Cancelled 06/12/23 16:54 Basophilic Stippling Cancelled 06/12/23 16:54 Anisocytosis Cancelled 06/12/23 16:54 Microcytosis Cancelled 06/12/23 16:54 Macrocytosis Cancelled 06/12/23 16:54 Spherocytes Cancelled 06/12/23 16:54 Pappenheimer Bodies Cancelled 06/12/23 16:54 Sickle Cells Cancelled 06/12/23 16:54 Target Cells Cancelled 06/12/23 16:54 Tear Drop Cells Cancelled 06/12/23 16:54 Ovalocytes Cancelled 06/12/23 16:54 Stomatocytes Cancelled 06/12/23 16:54 Wade-Floyd Bodies Cancelled 06/12/23 16:54 Echinocytes Cancelled 06/12/23 16:54 Acanthocytes (Spur) Cancelled 06/12/23 16:54 Rouleaux Cancelled 06/12/23 16:54 RBC Agglutinates Cancelled 06/12/23 16:54 Schistocytes Cancelled 06/12/23 16:54 Sezary Cell Cancelled 06/12/23 16:54 PT 9.9 Seconds (9.0-12.0) 06/12/23 16:54 INR 0.9 (0.9-1.1) 06/12/23 16:54 APTT < 20 Seconds (21-31) L 06/12/23 16:54 PTT Ratio 0.7 06/12/23 16:54 Sodium 132 mmol/L (136-145) L 06/12/23 16:54 Potassium 4.3 mmol/L (3.5-5.1) 06/12/23 16:54 Chloride 98 mmol/L (98-107) 06/12/23 16:54 Carbon Dioxide 26 mmol/L (21-32) 06/12/23 16:54 Anion Gap 8 (3-11) 06/12/23 16:54 BUN 4 mg/dl (6-23) L 06/12/23 16:54 Creatinine 0.74 mg/dl (0.6-1.2) 06/12/23 16:54 Est Cr Clr Drug Dosing 77.3 ml/min 06/12/23 16:54 Est GFR ( Amer) 105.7 ml/min 06/12/23 16:54 Est GFR (Non-Af Amer) 91.2 ml/min 06/12/23 16:54 BUN/Creatinine Ratio 5.4 (10-20) L 06/12/23 16:54 Glucose 83 mg/dl (70-99(Fasting)) 06/12/23 16:54 Calcium 9.4 mg/dl (8.6-10.3) 06/12/23 16:54 Total Bilirubin 0.5 mg/dl (0.2-1.0) 06/12/23 16:54 AST 15 U/L (13-39) 06/12/23 16:54 ALT 10 U/L (7-52) 06/12/23 16:54 Alkaline Phosphatase 120 U/L (34-104) H 06/12/23 16:54 Total Protein 7.8 gm/dl (6.0-8.3) 06/12/23 16:54 Albumin 4.2 gm/dl (3.4-5.0) 06/12/23 16:54 Globulin 3.6 gm/dl (2.5-4.0) 06/12/23 16:54 Albumin/Globulin Ratio 1.2 (0.9-2) 06/12/23 16:54 Blood Parasites ID Cancelled 06/12/23 16:54 Impressions Chest CTA 06/12/23 15:27 CT ANGIOGRAM OF THE CHEST CLINICAL HISTORY: Dyspnea. Abnormal chest x-ray. COMPARISON STUDY: Chest x-ray dated 06/12/2023. Chest CT dated 03/16/2009. TECHNIQUE: Following the IV administration of 74 cc of Optiray 320, CT angiogram of the chest was performed from the upper abdomen to the thoracic inlet utilizing the pulmonary embolus protocol. Images are reviewed in the axial, sagittal, and coronal planes. 3-D MIPS images are created and assessed. IV contrast was administered without complication. A dose lowering technique was utilized adhering to the principles of ALARA. CT DOSE: 630.75 mGy.cm FINDINGS: Thyroid: Imaged portions of the thyroid gland are normal in size and attenuation. Thoracic aorta: The thoracic aorta is normal in caliber and demonstrates standard 3-vessel arch anatomy. No dissection is seen. Pulmonary vasculature: The pulmonary trunk is normal in caliber. There are no filling defects identified in main, lobar, or segmental pulmonary branches to suggest pulmonary embolus. Heart: The heart is normal in size and without pericardial effusion. Lungs and pleural spaces: There is a moderate to large right pleural effusion with atelectasis of the right lower lung. Pleural thickening and enhancement is suggested in the right lower lobe, and this effusion may be malignant. A small pleural effusion is seen on the left. Subpleural scarring anterior right lung may be treatment related. Impression live interseptal thickening is noted. Patchy groundglass opacities are seen throughout both lungs. A 13 mm nodular opacity in the left lower lobe is seen on image 133. Mediastinum: There are mildly enlarged mediastinal lymph nodes. A precarinal node measures 11 mm in short axis. Teressa: Prominent hilar nodes measure up to 10 mm short axis. Axillae: Surgical clips are noted in the left axilla. There is no axillary lymphadenopathy. Upper abdomen: There are at least 2 hypodense lesions in the left lobe of the liver seen on images #25 and #13. These measure up to 12 mm and were not clearly seen on prior studies. These are suspicious for metastatic disease. Skeletal structures: The skeletal structures are osteopenic. There is mild chronic compression deformity of T5. 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 The largest lesions are seen in the bodies of T5, T10, and T12.. There are chronic/healed left-sided rib fractures. Soft tissues: There are bilateral breast implants. IMPRESSION: 1. There is no evidence of pulmonary embolus in the main, lobar, or segmental pulmonary arteries. 2. Moderate to large right pleural effusion. Pleural thickening and enhancement is suggested at the right lung base, and a malignant effusion is not excluded. 3. A small pleural effusion is seen on the left. 4. Findings are highly suspicious for multifocal osteoblastic metastatic disease. 5. There are 2 low-attenuation left lobe liver lesions. These were not clearly seen on prior examinations and are also highly suspicious for metastatic disease. 7. Intralobular septal thickening suggests fluid overload/congestive change. Correlate clinically. 8. Patchy groundglass opacities throughout both lungs could represent mild pulmonary edema and/or an infectious/inflammatory pneumonitis. Again, correlate clinically. 9. A 13 mm nodular opacity in the left lower lobe is pathologically indeterminate. Neoplasm is not excluded. Attention at follow-up is recommended. 10. Mildly enlarged mediastinal lymph nodes are pathologically indeterminate. Attention at follow-up is recommended. 11. Additional findings as above. ACT 112: Positive. There are findings on this exam that require communication between the performing entity and the patient following Patient Test Result Information Act ([place] Act 112) guidelines. Electronically signed by: Alex Dwyer M.D. 06/12/2023 7:09 PM Code Status & VTE Plan VTE Prophylaxis Plan VTE Prophylaxis will be ordered: Yes PG Care Time/CCT Total # of Minutes Spent Total Time Spent with Patient: Total time spent is greater than 50% in coordination of care (as documented) at patient's floor/unit and/or counseling patient: Coding Level of Care Code 41882 INT INP/OBS CARE 2/55MIN Diagnoses Pleural effusion J90 Bipolar 2 disorder F31.81 ADD (attention deficit disorder) F98.8
[2023-06-12 21:44] LABS: Basophils # (auto) 0.04 K/uL (0.00-0.20); Basophils % (auto) 0.5 %; Eosinophils # (auto) 0.21 K/uL (0.00-0.50); Eosinophils % (auto) 2.8 %; Hematocrit (blood only) 39.9 % (37.0-47.0); Hemoglobin 13.5 g/dl (12.0-16.0); Immature Granulocytes # (auto) 0.02 K/uL (0.01-0.20); Immature Granulocytes % (auto) 0.3 %; Lymphocytes # (auto) 2.97 K/uL (1.20-3.40); Lymphocytes % (auto) 39.5 %; Mean Corpuscular Hemoglobin 28.5 pg (25.0-34.0); Mean Corpuscular Hgb Conc 33.8 g/dL (32.0-36.0); Mean Corpuscular Volume 84.2 fL (80.0-100.0); Mean Platelet Volume 8.2 fL (9.4-12.4); Monocytes # (auto) 0.54 K/uL (0.11-0.59); Monocytes % (auto) 7.2 %; Neutrophils # (auto) 3.74 K/uL (1.40-6.50); Neutrophils % (auto) 49.7 %; Platelet Count 533 K/uL (130-400); RDW Coefficient of Variation 17.2 % (11.5-14.5); RDW Standard Deviation 52.8 fL (36.4-46.3); Red Blood Count 4.74 M/uL (4.20-5.40); White Blood Count 7.52 K/ul (4.8-10.8)
[2023-06-12] MEDS ORDERED: ONDANSETRON INJ 2 MG/ML 2 ML VIAL IV PRN (22:39)
[2023-06-12] MEDS ORDERED: ACETAMINOPHEN 325 MG TAB PO PRN (22:39)
[2023-06-12] MEDS ORDERED: QUEtiapine FUMARATE 25 MG TABLET PO PRN (22:40)
[2023-06-12] MEDS ORDERED: QUEtiapine FUMARATE 100 MG TABLET PO STA (22:44)
[2023-06-12] MEDS ORDERED: TOPIRAMATE 25 MG TAB PO STA (22:44)
[2023-06-12] MEDS ORDERED: GABAPENTIN 800 MG TAB PO STA (22:44)
--- NOTE | 2023-06-12 23:01 | Emergency Department Note ---
ED Provider Note History of Present Illness Chief Complaint: Respiratory Problems Stated Complaint: RF BY FOR RT LUNG FILLED [facility] FLUID Time Seen by Provider: 06/12/23 17:40 Source: patient Mode of arrival: ambulatory Limitations: no limitations This patient is a 57-year-old female who presents to the emergency department for evaluation of an abnormal chest x-ray. She reports that she initially got sick about a month ago around [facility]. She was treated for pneumonia with antibiotics. She had a repeat chest x-ray to make sure things had cleared up but was told that it was abnormal and she needed to come here. She does report continued shortness of breath. Cough has mostly resolved. Patient has a remote history of breast cancer and does report a history of factor V Leiden deficiency. Home Medications Medication Instructions Recorded Confirmed Type quetiapine 100 mg tablet 100 mg PO HS 08/20/20 06/15/23 History methylphenidate HCl 20 mg tablet 10 mg PO BID 08/23/20 06/15/23 History quetiapine 50 mg tablet 50 mg PO HS 08/23/20 06/15/23 History topiramate 25 mg tablet (Topamax) 25 mg PO BID 08/23/20 06/15/23 History lorazepam 1 mg tablet 1 mg PO DAILY 09/30/20 06/15/23 History acetaminophen 500 mg tablet 1,000 mg PO QAM 03/22/21 06/15/23 History (Tylenol Extra Strength) ibuprofen 800 mg tablet 800 mg PO PM 03/23/22 06/15/23 History pantoprazole 40 mg tablet,delayed 40 mg PO DAILY #30 tabs 12/25/22 06/15/23 Rx release cyclobenzaprine 5 mg tablet 5 mg PO TID PRN MUSCLE SPASMS #90 04/05/23 06/15/23 Rx tabs gabapentin 800 mg tablet 800 mg PO TID #90 tabs 05/23/23 06/15/23 Rx albuterol sulfate 90 mcg/actuation 2 puff inhalation Q4H PRN 06/13/23 06/15/23 History aerosol inhaler COUGH/WHEEZING duloxetine 40 mg capsule,delayed 40 mg PO QAM 06/13/23 06/15/23 History release nicotine 21 mg/24 hr daily 21 mg transdermal QAM #0 ea 06/14/23 06/15/23 Rx transdermal patch (Nicoderm CQ) aspirin 81 mg tablet,delayed 81 mg PO DAILY 06/15/23 06/15/23 History release Allergies Allergy/AdvReac Type Severity Reaction Status Date / Time Penicillins Allergy Severe THROAT Verified 06/13/23 19:19 CLOSES Sulfa (Sulfonamide Allergy Intermediate Hives Verified 06/13/23 19:19 Antibiotics) Past Med/Surg History Medical History Vascular disease of abdomen Metastasis to liver Metastatic cancer to spine Alcoholism in remission History of breast cancer Right - 2011 Transaminitis Acute pancreatitis Alcohol use ADD (attention deficit disorder) Bipolar 2 disorder Pancreatitis Surgical History Status post mastectomy Family History Grandfather Colorectal cancer Grandmother Colorectal cancer Other Breast cancer Myocardial infarction Stroke Denies family history of Ovarian cancer Prostate cancer Social History Smoking Status: Current every day smoker Tobacco Type: Cigarettes Cigarettes Per Day: 15; Second Hand Exposure: No; Do You Dip or Chew Tobacco: No; Hx Alcohol Use: No Hx Substance Use: No Preferred Language: Slovak Communication Ability: Effective Environmental Resource Specialist Required: No Beliefs That Will Affect Care: None marital status: Current Living Situation: Alone current occupational status: employed Feels Safe at Home: Yes Diet: gluten free caffeine: Yes Physical Activity Frequency: Daily Assistive Devices: None Physical Exam Vital Signs Vital Signs - 24 hr 06/12/23 15:24 Temperature 36.0 C L Temperature Source Temporal Artery Scan Pulse Rate 103 H Respiratory Rate 19 Blood Pressure 126/76 Blood Pressure Mean 92 Pulse Oximetry 93 Oxygen Delivery Method Room Air Sepsis Recent Fever Within 48 Hours No Sepsis New/Unexplained Change in Mental Status N/A Sepsis Action Taken by Nursing No Action Required VITALS: Vitals are noted on the nurse's note and reviewed by myself. GENERAL: This is a 57-year-old female, in no acute distress, well-developed well-nourished. SKIN: The skin was without rashes. EARS: External auditory canals clear, tympanic membranes pearly romero without erythema or effusion bilaterally. EYES: Pupils equal round and reactive to light and accommodation. NOSE: Patent, turbinates without inflammation or discharge. No sinus tenderness. MOUTH: Mucous membranes moist. Tonsils are not enlarged. Pharynx without erythema or exudate. NECK: Supple without nuchal rigidity. No lymphadenopathy. HEART: Regular rate and rhythm without murmurs gallops or rubs. LUNGS: Decreased breath sounds in the right middle and lower lung. NEURO: Patient was alert and oriented to person place and time. Course Administered Medications Discontinued Medications Acetaminophen (Acetaminophen 325 Mg Tab) 650 mg PO Q4H PRN PRN Reason: pain/fever Stop: 07/12/23 22:38 Last Admin: 06/13/23 08:31 Dose: 650 mg Documented By: BIMAL Duloxetine HCl (Duloxetine Hcl 30 Mg Cap) 30 mg PO DAILY [facility] Stop: 07/13/23 08:59 Last Admin: 06/14/23 09:09 Dose: 30 mg Documented By: Admin: 06/13/23 08:39 Dose: 30 mg Documented By: BIMAL Gabapentin (Gabapentin 800 Mg Tab) 800 mg PO TID [facility] Stop: 07/13/23 08:59 Last Admin: 06/14/23 09:02 Dose: 800 mg Documented By: Admin: 06/13/23 20:27 Dose: 800 mg Documented By: Admin: 06/13/23 14:55 Dose: 800 mg Documented By: Admin: 06/13/23 08:38 Dose: 800 mg Documented By: BIMAL Gabapentin (Gabapentin 800 Mg Tab) 800 mg PO NOW STA Stop: 06/12/23 22:45 Last Admin: 06/12/23 23:05 Dose: 800 mg Documented By: BENJI Gadobutrol (Gadobutrol 65ml Vial) 6 ml IV ONCE ONE Stop: 06/13/23 14:21 Last Admin: 06/13/23 14:12 Dose: 6 ml Documented By: JOAQUIN Guaifenesin/Dextromethorphan (Guaifenesin/Dextrom Syrup 200mg/20mg 10ml Udc) 10 ml PO Q8 [facility] Stop: 07/13/23 13:59 Last Admin: 06/14/23 06:14 Dose: Not Given Documented By: Admin: 06/13/23 20:28 Dose: 10 ml Documented By: Admin: 06/13/23 14:55 Dose: 10 ml Documented By: BIMAL Acetaminophen (Ofirmev) 1,000 mg in 100 mls @ 400 mls/hr IV NOW STA Stop: 06/13/23 12:34 Last Infusion: 06/13/23 15:17 Dose: Infused Documented By: Admin: 06/13/23 12:49 Dose: 400 mls/hr Documented By: BIMAL Ioversol (Optiray 320 125ml) 74 ml IV ONCE ONE Stop: 06/12/23 18:22 Last Admin: 06/12/23 18:21 Dose: 74 ml Documented By: MARILUZ Ioversol (Optiray 320 500ml) 90 ml IV ONCE ONE Stop: 06/13/23 13:19 Last Admin: 06/13/23 13:18 Dose: 90 ml Documented By: DANIEL Lidocaine HCl (Lidocaine 2% Jelly 5 Ml Tube) Confirm Administered Dose 5 ml EXT .STK-MED ONE Stop: 06/13/23 11:47 Last Admin: 06/13/23 12:49 Dose: 5 ml Documented By: BIMAL Lorazepam (Lorazepam 1 Mg Tab) 1 mg PO DAILY [facility] Stop: 07/13/23 08:59 Last Admin: 06/14/23 09:21 Dose: 1 mg Documented By: Admin: 06/13/23 08:49 Dose: 1 mg Documented By: BIMAL Melatonin (Melatonin 3 Mg Tab) 3 mg PO HS PRN PRN Reason: Sleep Stop: 07/12/23 22:52 Last Admin: 06/13/23 22:08 Dose: 3 mg Documented By: Admin: 06/12/23 23:04 Dose: 3 mg Documented By: BENJI Methylphenidate HCl (Methylphenidate Hcl 10 Mg Tablet) 10 mg PO BIDM [facility] Stop: 06/27/23 07:59 Last Admin: 06/14/23 09:21 Dose: 10 mg Documented By: Admin: 06/13/23 17:34 Dose: 10 mg Documented By: Admin: 06/13/23 08:49 Dose: 10 mg Documented By: BIMAL Miscellaneous (Remove Nicoderm Patch) 1 each N/A DAILY@0859 [facility] Stop: 07/13/23 08:58 Last Admin: 06/14/23 09:05 Dose: 1 each Documented By: Admin: 06/13/23 08:39 Dose: 1 each Documented By: BIMAL Nicotine (Nicotine 21 Mg/24 Hr Tdsy) 21 mg TD QAM [facility] Stop: 07/13/23 08:59 Last Admin: 06/14/23 09:03 Dose: 21 mg Documented By: Admin: 06/13/23 08:39 Dose: 21 mg Documented By: BIMAL Pantoprazole Sodium (Pantoprazole 40 Mg Tab) 40 mg PO DAILY [facility] Stop: 07/13/23 08:59 Last Admin: 06/14/23 09:09 Dose: 40 mg Documented By: Admin: 06/13/23 08:38 Dose: 40 mg Documented By: BIMAL Quetiapine Fumarate (Quetiapine Fumarate 100 Mg Tablet) 100 mg PO HS [facility] Stop: 07/13/23 20:59 Last Admin: 06/13/23 20:27 Dose: 100 mg Documented By: BAN Quetiapine Fumarate (Quetiapine Fumarate 100 Mg Tablet) 100 mg PO NOW STA Stop: 06/12/23 22:45 Last Admin: 06/12/23 23:04 Dose: 100 mg Documented By: BENJI Topiramate (Topiramate 25 Mg Tab) 25 mg PO BID [facility] Stop: 07/13/23 08:59 Last Admin: 06/14/23 09:02 Dose: 25 mg Documented By: Admin: 06/13/23 20:28 Dose: 25 mg Documented By: Admin: 06/13/23 08:37 Dose: 25 mg Documented By: BIMAL Topiramate (Topiramate 25 Mg Tab) 25 mg PO NOW STA Stop: 06/12/23 22:45 Last Admin: 06/12/23 23:04 Dose: 25 mg Documented By: BENJI Medical Decision Making Differential Diagnosis Reactive airway disease, pneumonia, pneumothorax, COPD, CHF, infections, cardiac ischemia, pulmonary embolism, musculoskeletal, gastrointestinal, as well as other pathologies. Home Medications was personally reviewed by me Laboratory Data Attestation: I reviewed the patient's lab results. 06/12/23 20:52 06/12/23 16:54 Lab Results 06/12/23 06/12/23 Range/Units 16:54 20:52 WBC Cancelled 7.52 RBC Cancelled 4.74 Hgb Cancelled 13.5 Hct Cancelled 39.9 MCV Cancelled 84.2 MCH Cancelled 28.5 MCHC Cancelled 33.8 RDW Std Deviation Cancelled 52.8 H RDW Coeff of Kobe Cancelled 17.2 H Plt Count Cancelled 533 H MPV Cancelled 8.2 L Immature Gran % (Auto) Cancelled 0.3 Neut % (Auto) Cancelled 49.7 Lymph % (Auto) Cancelled 39.5 [place] % (Auto) Cancelled 7.2 Eos % (Auto) Cancelled 2.8 Baso % (Auto) Cancelled 0.5 Neut # (Auto) Cancelled 3.74 Lymph # (Auto) Cancelled 2.97 [place] # (Auto) Cancelled 0.54 Eos # (Auto) Cancelled 0.21 Baso # (Auto) Cancelled 0.04 Immature Gran # (Auto) Cancelled 0.02 Absolute Nucleated RBC Cancelled Nucleated RBC % (auto) Cancelled Neutrophils % (Manual) Cancelled Band Neutrophils % Cancelled Lymphocytes % (Manual) Cancelled Prolymphocyte % Cancelled Reactive Lymphs % (Man) Cancelled Monocytes % (Manual) Cancelled Eosinophils % (Manual) Cancelled Basophils % (Manual) Cancelled Metamyelocytes % (Man) Cancelled Myelocytes % (Man) Cancelled Promyelocytes % (Man) Cancelled Blast Cells % (Manual) Cancelled Plasma Cell % (Manual) Cancelled Other Cells % Cancelled Nucleated RBC % Cancelled Neutrophils # (Manual) Cancelled Band Neutrophils # Cancelled Total Absolute Neuts Cancelled Lymphocytes # (Manual) Cancelled Prolymphocyte # Cancelled Reactive Lymphs # Cancelled Total Abs Lymphocytes Cancelled Monocytes # (Manual) Cancelled Eosinophils # (Manual) Cancelled Basophils # (Manual) Cancelled Metamyelocytes # (Man) Cancelled Myelocytes # (Manual) Cancelled Promyelocytes # (Man) Cancelled Blast Cells # (Man) Cancelled Plasma Cell # (Manual) Cancelled Other Cells # Cancelled Nucleated RBCs # (Man) Cancelled Hypersegmented Neuts Cancelled Hyposegmented Neuts Cancelled Hypogranular Neuts Cancelled Large Granular Lymphs Cancelled # Lrg Granular Lymphs Cancelled Hairy Cells Cancelled Smudge Cells Cancelled Toxic Granulation Cancelled Toxic Vacuolation Cancelled Dohle Bodies Cancelled Nelia Rods Cancelled Platelet Estimate Cancelled Hypogranular Platelets Cancelled Giant Platelets Cancelled Platelet Satelliting Cancelled RBC Morphology Cancelled Polychromasia Cancelled Hypochromasia Cancelled Poikilocytosis Cancelled Basophilic Stippling Cancelled Anisocytosis Cancelled Microcytosis Cancelled Macrocytosis Cancelled Spherocytes Cancelled Pappenheimer Bodies Cancelled Sickle Cells Cancelled Target Cells Cancelled Tear Drop Cells Cancelled Ovalocytes Cancelled Stomatocytes Cancelled Wade-Bullhead Bodies Cancelled Echinocytes Cancelled Acanthocytes (Spur) Cancelled Rouleaux Cancelled RBC Agglutinates Cancelled Schistocytes Cancelled Sezary Cell Cancelled PT 9.9 (9.0-12.0) Seconds INR 0.9 (0.9-1.1) APTT < 20 L (21-31) Seconds PTT Ratio 0.7 Sodium 132 L (136-145) mmol/L Potassium 4.3 (3.5-5.1) mmol/L Chloride 98 (98-107) mmol/L Carbon Dioxide 26 (21-32) mmol/L Anion Gap 8 (3-11) BUN 4 L (6-23) mg/dl Creatinine 0.74 (0.6-1.2) mg/dl Est Cr Clr Drug Dosing 77.3 ml/min Est GFR ( Amer) 105.7 ml/min Est GFR (Non-Af Amer) 91.2 ml/min BUN/Creatinine Ratio 5.4 L (10-20) Glucose 83 (70-99(Fasting)) mg/dl Calcium 9.4 (8.6-10.3) mg/dl Total Bilirubin 0.5 (0.2-1.0) mg/dl AST 15 (13-39) U/L ALT 10 (7-52) U/L Alkaline Phosphatase 120 H (34-104) U/L Total Protein 7.8 (6.0-8.3) gm/dl Albumin 4.2 (3.4-5.0) gm/dl Globulin 3.6 (2.5-4.0) gm/dl Albumin/Globulin Ratio 1.2 (0.9-2) Blood Parasites ID Cancelled Imaging Data Attestation: I personally reviewed and interpreted this imaging study as follows: Radiologist's Impression: Chest CTA 06/12/23 15:27 CT ANGIOGRAM OF THE CHEST CLINICAL HISTORY: Dyspnea. Abnormal chest x-ray. COMPARISON STUDY: Chest x-ray dated 06/12/2023. Chest CT dated 03/16/2009. TECHNIQUE: Following the IV administration of 74 cc of Optiray 320, CT angiogram of the chest was performed from the upper abdomen to the thoracic inlet utilizing the pulmonary embolus protocol. Images are reviewed in the axial, sagittal, and coronal planes. 3-D MIPS images are created and assessed. IV contrast was administered without complication. A dose lowering technique was utilized adhering to the principles of ALARA. CT DOSE: 630.75 mGy.cm FINDINGS: Thyroid: Imaged portions of the thyroid gland are normal in size and attenuation. Thoracic aorta: The thoracic aorta is normal in caliber and demonstrates standard 3-vessel arch anatomy. No dissection is seen. Pulmonary vasculature: The pulmonary trunk is normal in caliber. There are no filling defects identified in main, lobar, or segmental pulmonary branches to suggest pulmonary embolus. Heart: The heart is normal in size and without pericardial effusion. Lungs and pleural spaces: There is a moderate to large right pleural effusion with atelectasis of the right lower lung. Pleural thickening and enhancement is suggested in the right lower lobe, and this effusion may be malignant. A small pleural effusion is seen on the left. Subpleural scarring anterior right lung may be treatment related. Impression live interseptal thickening is noted. Patchy groundglass opacities are seen throughout both lungs. A 13 mm nodular opacity in the left lower lobe is seen on image 133. Mediastinum: There are mildly enlarged mediastinal lymph nodes. A precarinal node measures 11 mm in short axis. Teressa: Prominent hilar nodes measure up to 10 mm short axis. Axillae: Surgical clips are noted in the left axilla. There is no axillary lymphadenopathy. Upper abdomen: There are at least 2 hypodense lesions in the left lobe of the liver seen on images #25 and #13. These measure up to 12 mm and were not clearly seen on prior studies. These are suspicious for metastatic disease. Skeletal structures: The skeletal structures are osteopenic. There is mild chronic compression deformity of T5. 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 The largest lesions are seen in the bodies of T5, T10, and T12.. There are chronic/healed left-sided rib fractures. Soft tissues: There are bilateral breast implants. IMPRESSION: 1. There is no evidence of pulmonary embolus in the main, lobar, or segmental pulmonary arteries. 2. Moderate to large right pleural effusion. Pleural thickening and enhancement is suggested at the right lung base, and a malignant effusion is not excluded. 3. A small pleural effusion is seen on the left. 4. Findings are highly suspicious for multifocal osteoblastic metastatic disease. 5. There are 2 low-attenuation left lobe liver lesions. These were not clearly seen on prior examinations and are also highly suspicious for metastatic disease. 7. Intralobular septal thickening suggests fluid overload/congestive change. Correlate clinically. 8. Patchy groundglass opacities throughout both lungs could represent mild pulmonary edema and/or an infectious/inflammatory pneumonitis. Again, correlate clinically. 9. A 13 mm nodular opacity in the left lower lobe is pathologically indeterminate. Neoplasm is not excluded. Attention at follow-up is recommended. 10. Mildly enlarged mediastinal lymph nodes are pathologically indeterminate. Attention at follow-up is recommended. 11. Additional findings as above. ACT 112: Positive. There are findings on this exam that require communication between the performing entity and the patient following Patient Test Result Information Act ([place] Act 112) guidelines. Electronically signed by: Alex Dwyer M.D. 06/12/2023 7:09 PM MDM Narrative The patient is a 57-year-old female who presents today complaining of shortness of breath and abnormal outpatient chest x-ray. Patient was sick about a month ago, treated for pneumonia at that time. She had a repeat chest x-ray today to check whether this had resolved. This was found to be abnormal and she was sent to the ER. She states cough has resolved but does report some residual shortness of breath. CT angiogram of the chest was performed here. This shows a large right pleural effusion. Unfortunately additional findings include multiple liver lesions as well as findings suggestive of osteoblastic metastatic disease. Patient was informed of these findings. She will obviously require additional workup as well as treatment of the pleural effusion. Her case was discussed with the [facility] hospitalist service, who agreed to evaluate the patient for further care. Based on the patient's presentation and work up, I feel the patient is stable for outpatient treatment. The patient was educated to return to the emergency department for any worsening of their current condition or new/concerning symptoms. [] will follow up with []. Impression Pleural effusion, Metastatic cancer to spine, Metastasis to liver Discharge Plan Visit Data Chief Complaint: Respiratory Problems Stated Complaint: RF BY FOR RT LUNG FILLED W[facility] FLUID ED Provider: Douglas Mora ED Midlevel Provider: Darlyn Gutierrez Discharge Problem: Pleural effusion, Metastatic cancer to spine, Metastasis to liver Patient Disposition: Admitted As Inpatient Condition: Fair Discharge Instructions Interventions: ED Discharge Assessment Last Done: 06/12/23 22:25
[2023-06-12] MEDS: MELATONIN 3 MG TAB PO PRN (23:04)
--- NOTE | 2023-06-13 07:07 | Pulmonary Consultation ---
Date of Consultation June 13, 2023 Assessment & Plan (1) Pleural effusion: (2) Abnormal chest CT: (3) History of tobacco use: (4) History of breast cancer: Plan CT chest 06/12/2023 personally reviewed: Patchy groundglass opacities appreciated bilaterally especially in the left upper lobe Left lower lobe 1.3 cm pulmonary nodule, scarring versus round atelectasis of the right upper lobe Compressive atelectasis of the right lower lobe Large right and small left pleural effusion Minimal mediastinal lymphadenopathy -- Pleural effusion R>L Etiology is likely malignant Could be recurrence of breast cancer versus new Lung cancer -- Pulmonary nodule with mild mediastinal adenopathy Likely underlying malignancy Could be metastatic relapse of breast cancer or new lung cancer -- History of breast cancer S/p double mastectomy in 2010 --Current smoker Importance of quitting explained with the patient in depth Plan: Recommend MRI of the brain if not already done CT of the abdomen and pelvis to help with staging Follow-up influenza A/B, RSV as well as COVID-19 for the patchy groundglass opacities bilaterally Patient did have thoracentesis done today, patient likely has pleural thickening and pneumothorax ex vacuo I will repeat chest x-ray in 2 hours from the original chest x-ray to make sure the pneumothorax is not getting worse. Patient is hemodynamically stable and her chest pain is improving. If there is any worsening output of chest tube All questions inquiries of the patient as well as patient daughter were answered in depth Please note the above document was generated using voice recognition software. It may contain grammatical, syntax or spelling errors.Any formal questions or concerns about the content, text or information contained within the body of this dictation should be directly addressed to the provider for clarification. History of Present Illness Attending Physician: Светлана Bowie DO History of Present Illness 57-year-old female presented to the hospital with complaints of shortness of breath Past medical history: Stage I breast cancer s/p double mastectomy, approximately 2010 Pulmonary consulted for pleural effusion At the time of examination patient was not any respiratory distress. She was saturating 93 over 94% on room air She does state that her breathing has been getting worse since last couple of months. Is usually worse when she is laying down and early in the morning when she wakes up Does complain of cough especially in the morning with clear phlegm. Denies any hemoptysis. Patient states that she has actually gained some weight in the last couple of months approximately 7 pounds. Denies any night sweats. No unusual headache, no blurry vision. 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 Exposure to chemicals, does not wear mask. No history of lung cancer in the family Allergies Allergy/AdvReac Type Severity Reaction Status Date / Time Penicillins Allergy Severe THROAT Verified 02/13/23 16:03 CLOSES Sulfa (Sulfonamide Allergy Intermediate Hives Verified 02/13/23 16:03 Antibiotics) Home Medications Medication Instructions Recorded Confirmed Type aspirin 81 mg tablet,delayed 81 mg PO DAILY 08/20/20 11/08/22 History release quetiapine 100 mg tablet 100 mg PO HS 08/20/20 11/08/22 History methylphenidate HCl 20 mg tablet 10 mg PO BID 08/23/20 11/08/22 History quetiapine 50 mg tablet 25 - 50 mg PO HS 08/23/20 11/08/22 History topiramate 25 mg tablet (Topamax) 25 mg PO BID 08/23/20 11/08/22 History lorazepam 1 mg tablet 1 mg PO DAILY 09/30/20 11/08/22 History acetaminophen 500 mg tablet 500 mg PO Q6H PRN 03/22/21 11/08/22 History (Tylenol Extra Strength) ibuprofen 800 mg tablet 800 mg PO BID 03/23/22 11/08/22 History duloxetine 30 mg capsule,delayed 30 mg PO DAILY 11/08/22 11/08/22 History release (Cymbalta) pantoprazole 40 mg tablet,delayed 40 mg PO DAILY #30 tabs 12/25/22 Rx release doxycycline hyclate 100 mg capsule 100 mg PO BID #20 caps 02/14/23 Rx cyclobenzaprine 5 mg tablet 5 mg PO TID PRN MUSCLE SPASMS #90 04/05/23 Rx tabs gabapentin 800 mg tablet 800 mg PO TID #90 tabs 05/23/23 Rx Patient History Medical History Alcoholism in remission History of breast cancer Right - 2011 Transaminitis Acute pancreatitis Alcohol use ADD (attention deficit disorder) Bipolar 2 disorder Pancreatitis Surgical History Status post mastectomy Family History Grandfather Colorectal cancer Grandmother Colorectal cancer Other Breast cancer Myocardial infarction Stroke Denies family history of Ovarian cancer Prostate cancer Social History Smoking Status: Current every day smoker Tobacco Type: Cigarettes Cigarettes Per Day: 15; Second Hand Exposure: No; Do You Dip or Chew Tobacco: No; Tobacco Cessation Education Requested by Patient: No Hx Alcohol Use: No Hx Substance Use: No Preferred Language: Guatemalan Communication Ability: Effective 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 Beliefs That Will Affect Care: None marital status: Current Living Situation: Alone current occupational status: employed Other Information That Helps Us Care for You: No Feels Safe at Home: Yes Safety Concerns: Feels Safe At This Time Diet: gluten free caffeine: Yes Physical Activity Frequency: Daily Assistive Devices: None Review of Systems 2 Review of Systems: All systems reviewed & are unremarkable except as noted in HPI & below Physical Exam 2 Physical Exam: Constitutional: No acute distress HEENT: EOMI, PERRLA Respiratory system: Decreased air entry on the right side, no wheeze, no rhonchi, no crackles CVS: S1-S2 positive, no murmurs or gallops Abdomen: Soft, nontender, nondistended, positive bowel sounds x4 Extremities: +2 pulses bilaterally radialis/ dorsalis pedis, no cyanosis, no edema Neuro: Awake alert oriented x3 Psych: Normal mood and affect G/U: No Martino Skin: no rashes, warm and dry Lymphatic: no cervical or axillary lymphadenopathy Results & Data Results & Data Vital Signs (Past 12 Hours) Vital Signs Temp Pulse Resp BP Pulse Ox O2 Del Method 06/13/23 06:56 36.6 C 103 H 16 110/73 93 Room Air 06/12/23 22:44 36.4 C L 85 16 130/76 93 Room Air 06/12/23 21:53 67 16 128/60 100 Room Air Laboratory Results 06/12/23 20:52 06/12/23 16:54 PG Care Time/CCT Total # of Minutes Spent Total Time Spent with Patient: Total time spent is greater than 50% in coordination of care (as documented) at patient's floor/unit and/or counseling patient: Coding Level of Care Code 67618 INT INP/OBS CARE MIN Diagnoses Pleural effusion J90 Abnormal chest CT R93.89 History of tobacco use Z87.891 History of breast cancer Z85.3
[2023-06-13] MEDS: TOPIRAMATE 25 MG TAB PO SCH ×2 (08:37→20:28)
[2023-06-13] MEDS: GABAPENTIN 800 MG TAB PO SCH ×3 (08:38→20:27)
[2023-06-13] MEDS: PANTOprazole 40 MG TAB PO SCH (08:38)
[2023-06-13] MEDS: DULoxetine HCL 30 MG CAP PO SCH (08:39)
[2023-06-13] MEDS: NICOTINE 21 MG/24 HR TDSY TD SCH (08:39)
--- NOTE | 2023-06-13 08:47 | Electrocardiogram Report ---
Test Reason : Blood Pressure : / mmHG Vent. Rate : 088 BPM Atrial Rate : 088 BPM P-R Int : 124 ms QRS Dur : 072 ms QT Int : 338 ms P-R-T Axes : 053 027 074 degrees QTc Int : 408 ms Normal sinus rhythm Nonspecific T wave abnormality Abnormal ECG When compared with ECG of 30-SEP-2020 19:51, No significant change was found Confirmed by Clint Ernandez ([id number]) on 06/13/2023 8:46:57 AM Referred By: Dany Armando Confirmed By:Gui Ernandez
[2023-06-13] MEDS: LORazepam 1 MG TAB PO SCH (08:49)
[2023-06-13] MEDS: METHYLPHENIDATE HCL 10 MG TABLET PO SCH ×2 (08:49→17:34)
[2023-06-13 09:17] LABS: Influenza A virus by PCR Negative (Neg); Influenza B virus by PCR Negative (Neg); RSV by PCR Negative (Neg); SARS CoV2 RNA(COVID-19) Ceph NEGATIVE (Negative)
[2023-06-13] MEDS ORDERED: LIDOCAINE 2% JELLY 5 ML TUBE EXT ONE (11:46)
[2023-06-13] MEDS ORDERED: ACETAMINOPHEN 1,000 MG/100 ML VIAL IV STA (12:20)
--- NOTE | 2023-06-13 12:21 | Procedure Note ---
Procedure Note Date of Service June 13, 2023 Note Procedure: Diagnostic therapeutic ultrasound-guided catheter thoracentesis Cvicu Rn: Dr. Shama Azevedo Indication: Pleural effusion Consent: Signed by patient and verified with timeout prior to procedure Anesthesia: 1% lidocaine without epinephrine local. Procedure: Consent was verified and timeout performed. Appropriate imaging studies were reviewed prior to the procedure. Patient was placed in a seated position and limited thoracic ultrasound was performed of the right chest. See separate imaging. Appropriate site above the diaphragm for thoracentesis was selected. The skin was prepped and draped in normal sterile fashion. Lidocaine was used for local analgesia. Fluid was aspirated via the finder needle. A small skin ashley was made with the scalpel and the catheter over the needle apparatus was advanced over the rib into the pleural space. Using the syringe one-way valve system, a total of 1400 mL's of serous fluid was removed. The catheter was removed and observed to be intact. A sterile dressing was applied. Post procedure chest x-ray was ordered. Fluid was sent for labs, culture and cytology. Complications: None Blood loss: Less than 1 cc Coding CPT Codes Pulmonary/Thoracic - Pulmonary and Thoracic: 17535 Thoracentesis w imaging ([id number]) [facility] [place] Procedure Codes (Charges) Pulmonary/Thoracic Procedure 1: Pulmonary and Thoracic: 05209 Thoracentesis w imaging
[2023-06-13] MEDS ORDERED: ACETAMINOPHEN 1000 MG/100 ML IV IV PRN (12:22)
--- NOTE | 2023-06-13 12:45 | XRay Report ---
SINGLE VIEW CHEST CLINICAL HISTORY: Status post right thoracentesis. FINDINGS: An AP, portable, upright chest radiograph is compared to chest x-ray and chest CT dated . Surgical clips are noted in the axilla bilaterally. The cardiomediastinal silhouette is unre markable. There are layering bilateral pleural effusions with dependent consolidation. Right pleural effusion has decreased in size from yesterday. There is a moderate right apical to basilar pneumothor ax. There is approximately 1.8 cm of apical pleural separation. No pneumothorax is seen on the left. No lobar consolidation is identified. The skeletal structures are osteopenic. The bony thorax is bryan sly intact. IMPRESSION: 1. A moderate right apical to basilar pneumothorax is seen post thoracentesis. 2. Layering pleural effusions with dependent consolidation. The right pleural effusion has significan tly decreased in size from yesterday. 3. Additional findings as above ACT 112: Negative or not required by law. Electronically signed by: Alex Dwyer M.D. 06/13/2023 12:44 PM
[2023-06-13] MEDS ORDERED: OPTIRAY 320 500ml IV ONE (13:18)
[2023-06-13 13:23] LABS: Albumin Level 3.9 gm/dl (3.4-5.0); Bilirubin,Total 0.6 mg/dl (0.2-1.0); Total Protein 7.3 gm/dl (6.0-8.3)
[2023-06-13 13:42] LABS: Total Protein Pleural Fluid 4.3 gm/dl
--- NOTE | 2023-06-13 13:47 | CT Scan Report ---
CT SCAN OF THE ABDOMEN AND PELVIS COMBO CLINICAL HISTORY: Metastatic disease. COMPARISON STUDY: Abdominal CT dated 12/05/2021. Chest CT dated 06/12/2023. TECHNIQUE: Before and following the IV administration of 90 cc of Optiray 320, CT scan of the abdome n and pelvis is performed from the lung bases to the proximal femora. Images are reviewed in the axia l, sagittal, and coronal planes. IV contrast was administered without complication. A dose lowering t echnique was utilized adhering to the principles of ALARA. CT DOSE: 1217.52 mGy.cm FINDINGS: Lung bases: The heart is normal in size and without pericardial effusion. Hydropneumothorax in the ri ght lung base. Pleural thickening and enhancement is seen at the right lung base. The right pleural e ffusion that may be malignant. There is a small left pleural effusion. Breast implants are partially imaged. Nodular septal thickening is noted in the lower lobes. There is a tiny hiatal hernia. Liver: The contrast-enhanced liver is normal in size, contour, and attenuation. There is no intrahepa tic biliary ductal dilatation. The hepatic veins and portal veins are patent. There is evidence of mu ltifocal hepatic metastatic disease with greater than 15 lesions identified. The largest lesions in t he inferior right lobe on image #94, measuring up to 5.5 cm. Gallbladder: Unremarkable. Spleen: Normal in size and attenuation. Pancreas: Unremarkable. Adrenal glands: There is mild nodular thickening of the adrenal glands. Kidneys: The contrast enhanced kidneys are normal in size and without hydronephrosis. The kidneys enh ance symmetrically. No renal calculi are identified on the unenhanced series. Abdominal vasculature: The abdominal aorta is normal in course and caliber noting moderate to advance d atherosclerotic calcification. There is mild to moderate focal stenosis of the abdominal aorta seen on image #154. There is high-grade stenosis of the right common iliac artery seen on axial image #18 2. There is moderate stenosis of the left common iliac artery. Bowel: There is no bowel obstruction. The appendix is well-visualized and normal. Peritoneum: There is no intraperitoneal free air or abdominal ascites. There is a large fat-containin g supraumbilical hernia as seen on axial image #95. There is a small fat-containing umbilical hernia. A navel piercing is in place. Lymphadenopathy: None. Pelvic viscera: The bladder is some excreted IV contrast. The uterus and adnexa are normal as visuali zed. Skeletal structures: There is evidence of multifocal osteoblastic metastatic disease. Lesions are see n within the bodies of T10, T12, L1, L3, and L4. Small lesions are also noted in the sacrum. IMPRESSION: 1. Hydropneumothorax is seen at the right lung base. The right pleural effusion may be malignant. 2. Small left pleural effusion. 3. Multifocal hepatic metastatic disease. 4. Multifocal osseous metastatic disease. 5. There is high-grade focal stenosis of the right common iliac artery. 6. Additional findings as above. ACT 112: Negative or not required by law. Electronically signed by: Alex Dwyer M.D. 06/13/2023 1:45 PM
[2023-06-13 14:15] LABS: Appearance Pleural Fluid Clear; Color Pleural Fluid Pale Yellow; Lymphocytes, Fluid 74 %; Mono,Macrophage,Mesothelial 23 %; Neutrophils, Fluid 3 %; RBC Pleural Fluid Auto < 2000 /uL; Source Pleural Fluid Other; WBC Pleural Fluid Auto 1318 /uL
[2023-06-13] MEDS ORDERED: GADOBUTROL 65ML VIAL IV ONE (14:20)
[2023-06-13] MEDS: guaiFENesin/DEXTROM SYRUP 200MG/20MG 10ML UDC PO SCH ×2 (14:55→20:28)
--- NOTE | 2023-06-13 14:56 | Magnetic Resonance Report ---
MR brain wo/w con HISTORY: 57 years-old Female suspected lung cancer history of breast cancer with osseous metastatic disease. COMPARISON: 11/18/20 TECHNIQUE: Multiplanar multisequence MRI of the brain was obtained both with and without the use of I V contrast. FINDINGS: No restricted diffusion. There is no acute intracranial hemorrhage, midline shift, abnormal extra-axi al collection, hydrocephalus or intra-axial mass. No pathologic looming artifact. 7 mm bone lesion of the T2 vertebral body on image 11 series 9 demonstrates decreased T1 signal. This lesion demonstrate s increased diffusion weighted signal as well. The volume and signal of the brain parenchyma is within normal limits. Cerebral venous sinuses and ma jason arterial flow voids appear patent. Skull, orbits and soft tissues are unremarkable. No abnormal i ntra-axial enhancement. IMPRESSION: 1. No acute intracranial abnormality. 2. No brain metastasis identified. 3. Subcentimeter osseous metastatic lesion of the dens. ACT 112: Negative or not required by law. The above report was generated using voice recognition software. It may contain grammatical, syntax o r spelling errors. Electronically signed by: Edward Peoples M.D. 06/13/2023 2:54 PM
--- NOTE | 2023-06-13 15:22 | XRay Report ---
XR chest 1V portable CLINICAL HISTORY: f/u COMPARISON STUDY: Chest CT June 12, 2023. Chest radiograph performed earlier today. FINDINGS: Moderate right pneumothorax is unchanged in size since chest radiograph performed earlier t deepa. The pneumothorax is predominantly basilar in location. Small residual right pleural effusion is noted. No left pneumothorax is present. Cardiomediastinal silhouette is stable. There are bilateral axillary surgical clips. IMPRESSION: No significant change in a moderate right pneumothorax since chest radiograph performed earlier today. Small residual pleural effusion. ACT 112: Negative or not required by law. Electronically signed by: Alonso Brice M.D. 06/13/2023 3:19 PM
--- NOTE | 2023-06-13 16:25 | Oncology Consultation ---
Date of Consultation June 13, 2023 Assessment & Plan (1) Liver cancer, primary, with metastasis from liver to other site: At this point my recommendation would be a CT-guided biopsy of the liver. We can hope to obtain a diagnosis from thoracentesis but and up to 60% of the cases pleural effusions can be negative cytologically. Keeping this in mind a biopsy from the liver would be a good idea especially fever to order additional testing including genomic testing on this presumed cancer. This was discussed with our hospital internal medicine colleagues and they will try to arrange for a CT- guided biopsy. Explained to the patient, subsequently she may need a PET CT scan and systemic therapy as this presumed cancer is spread to the liver, lungs and the bones. Plan Medical oncology will continue to follow and make appropriate recommendations. Thank you for this interesting oncological consult. History of Present Illness Attending Physician: Kelly Haines MD History of Present Illness The patient is a very pleasant 57-year-old female who presented to the hospital yesterday with worsening shortness of breath. CT scan of the chest was performed on 06/12/2023 which revealed moderate to large right pleural effusion with underlying pleural thickening. The patient also had a CT of the abdomen pelvis on 06/13/2023 which revealed multifocal hepatic metastatic disease as well as multifocal bone involvement. She had a brain MRI performed on 06/13/2023 which revealed osseous involvement however no intracranial inv olvement. Medical oncology has been consulted to assist in management of this patient with presumed advanced malignancy. She underwent a thoracentesis however the cytology from the fluid is still pending. She does have a prior history of breast cancer, treated in 2010. She underwent bilateral mastectomy, underwent genetic testing which was negative. She never needed any kind of adjuvant treatment. Allergies Allergy/AdvReac Type Severity Reaction Status Date / Time Penicillins Allergy Severe THROAT Verified 02/13/23 16:03 CLOSES Sulfa (Sulfonamide Allergy Intermediate Hives Verified 02/13/23 16:03 Antibiotics) Home Medications Medication Instructions Recorded Confirmed Type aspirin 81 mg tablet,delayed 81 mg PO DAILY 08/20/20 11/08/22 History release quetiapine 100 mg tablet 100 mg PO HS 08/20/20 11/08/22 History methylphenidate HCl 20 mg tablet 10 mg PO BID 08/23/20 11/08/22 History quetiapine 50 mg tablet 25 - 50 mg PO HS 08/23/20 11/08/22 History topiramate 25 mg tablet (Topamax) 25 mg PO BID 08/23/20 11/08/22 History lorazepam 1 mg tablet 1 mg PO DAILY 09/30/20 11/08/22 History acetaminophen 500 mg tablet 500 mg PO Q6H PRN 03/22/21 11/08/22 History (Tylenol Extra Strength) ibuprofen 800 mg tablet 800 mg PO BID 03/23/22 11/08/22 History duloxetine 30 mg capsule,delayed 30 mg PO DAILY 11/08/22 11/08/22 History release (Cymbalta) pantoprazole 40 mg tablet,delayed 40 mg PO DAILY #30 tabs 12/25/22 Rx release doxycycline hyclate 100 mg capsule 100 mg PO BID #20 caps 02/14/23 Rx cyclobenzaprine 5 mg tablet 5 mg PO TID PRN MUSCLE SPASMS #90 04/05/23 Rx tabs gabapentin 800 mg tablet 800 mg PO TID #90 tabs 05/23/23 Rx Patient History Medical History Alcoholism in remission History of breast cancer Right - 2011 Transaminitis Acute pancreatitis Alcohol use ADD (attention deficit disorder) Bipolar 2 disorder Pancreatitis Surgical History Status post mastectomy Family History Grandfather Colorectal cancer Grandmother Colorectal cancer Other Breast cancer Myocardial infarction Stroke Denies family history of Ovarian cancer Prostate cancer Social History Smoking Status: Current every day smoker Tobacco Type: Cigarettes Cigarettes Per Day: 15; Second Hand Exposure: No; Do You Dip or Chew Tobacco: No; Tobacco Cessation Education Requested by Patient: No Hx Alcohol Use: No Hx Substance Use: No Preferred Language: Slovak Communication Ability: Effective 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
--- NOTE | 2023-06-13 18:35 | Hospitalist Progress Note ---
Date of Service June 13, 2023 Assessment & Plan (1) Pleural effusion: Plan: 57yo female presenting with shortness of breath. Patient with moderate to large pleural effusion noted on CT chest as well as a 13mm LLL lung nodule, enlarged mediastinal lymph nodes, findings concerning for multifocal osteoblastic disease and 2 lesions in the left lobe of the liver. ordered CT abdomen and pelvis 06/13 with findings of hydropneumothorax in the right base ( the scan was taken prior to the thoracentesis), small left pleural effusion, multiple hepatic metastases, widespread osseous metastases T10, T12, L1, L3, L4, sacrum, and small subcentimeter metastasis in dens seen on MRI brain. MRI brain was reviewed and no evidence of brain metastases. Primary source - consider lung or breast - patient with long history of smoking >20 pack year - stage I breast cancer in 2010 treated with bilateral mastectomy - EGD/EUS and colonoscopy in 2020 - Discussed with adult neuropsychologist and medical oncologist - she had thoracentesis today for 1200 mL, reviewed fluid studies which are fairly unremarkable not consistent with empyema, cytology is pending - she has small to moderate pneumothorax on chest x-ray following thoracentesis, reviewed serial films today it is stable at 3 PM, treat with supplemental oxygen, repeat chest x-ray in a.m. asymptomatic - medical oncologist recommended obtaining liver biopsy to assist with tissue diagnosis and analysis, we are exploring whether this can be performed by IR tomorrow (2) Metastasis to liver: Plan: multiple liver metastases seen on CT imaging (3) Metastatic cancer to spine: Plan: widespread osseous metastases noted on CT imaging including T10, T12, L1, L3, L4, sacrum, and small subcentimeter metastasis in dens seen on MRI brain (4) Vascular disease of abdomen: Plan: incidental finding on CT abdomen and pelvis: severe right common iliac stenosis, moderate left common iliac stenosis, mild to moderate stenosis of abdominal aorta - abstinence from smoking advised - typically takes aspirin 81 mg held for procedures - ordered lipid panel for a.m. - made referral to outpatient vascular surgery (5) Bipolar 2 disorder: Plan: Chronic. Stable -Continue home medications - Topamax, Seroquel (6) ADD (attention deficit disorder): Plan: Chronic. Stable -Continue Ritalin at home dose (7) History of breast cancer: Plan: stage I treated with bilateral mastectomy in 2010, treatment was at [place] (8) Alcoholism in remission: (9) Factor V Leiden: (10) History of tobacco use: Admission and Anticipated Discharge Date Admission Date: June 12, 2023 Subjective she denies shortness of breath and denies chest pain. seen after thoracentesis. updated both daughters in the room. Linnette really wants to get out of the hospital soon because she feels that she has to work Physical Exam 2 Physical Exam: PHYSICAL EXAMINATION Last 24h vital signs reviewed, see documentation in flowsheet General: comfortable appearing, no distress, sitting in bed HEENT: Normocephalic, atraumatic, pupils round and equal, sclerae anicteric, no conjunctival injection, moist mucus membranes Lungs: Normal respiratory effort. Clear to auscultation bilaterally except diminished on right mid and base. No RRW Heart: Regular rate and rhythm, no murmurs. No JVD Abdomen: nondistended. Extremities: Warm, dry, well-perfused. No extremity edema. Neuro: Alert and oriented x 4, face symmetric, moves 4 extremities well Psych: Normal affect and behavior Results & Data Results & Data Vital Signs (Past 12 Hours) Vital Signs Temp Pulse Resp BP Pulse Ox O2 Del Method 06/13/23 14:49 36.6 C 106 H 19 102/66 92 Room Air 06/13/23 06:56 36.6 C 103 H 16 110/73 93 Room Air Laboratory Results 06/12/23 20:52 06/12/23 16:54 PG Care Time/CCT Total # of Minutes Spent Total Time Spent with Patient: Total time spent is greater than 50% in coordination of care (as documented) at patient's floor/unit and/or counseling patient: Coding Level of Care Code 68118 SUB INP/OBS CARE 3/50MIN Diagnoses Pleural effusion J90 Metastasis to liver C78.7 Metastatic cancer to spine C79.51 Vascular disease of abdomen I99.9 Bipolar 2 disorder F31.81 ADD (attention deficit disorder) F98.8 History of breast cancer Z85.3 Alcoholism in remission F10.21 Factor V Leiden D68.51 History of tobacco use Z87.891
[2023-06-13] MEDS ORDERED: QUEtiapine FUMARATE 100 MG TABLET PO SCH (21:00)
[2023-06-13] MEDS ORDERED: guaiFENesin 600 MG TABCR PO SCH (21:00)
[2023-06-13] MEDS: MELATONIN 3 MG TAB PO PRN (22:08)
[2023-06-14] MEDS: guaiFENesin/DEXTROM SYRUP 200MG/20MG 10ML UDC PO SCH (06:14)
--- NOTE | 2023-06-14 07:28 | XRay Report ---
SINGLE VIEW CHEST CLINICAL HISTORY: Follow-up hydropneumothorax. FINDINGS: An AP, portable, upright chest radiograph is compared to study dated 06/03/2023 and correla lisa with chest CT dated 06/12/2023. Surgical clips are noted in the axilla bilaterally. The cardiomed iastinal silhouette is unremarkable. There are layering bilateral pleural effusions with dependent co nsolidation. Moderate right hydropneumothorax is unchanged from yesterday. There is approximately 1.9 cm of apical pleural separation. No pneumothorax is seen on the left. No lobar consolidation is iden tified. The skeletal structures are osteopenic. The bony thorax is grossly intact. IMPRESSION: 1. Moderate right hydropneumothorax has not significantly changed from yesterday. 2. Layering pleural effusions with dependent consolidation. ACT 112: Negative or not required by law. Electronically signed by: Alex Dwyer M.D. 06/14/2023 7:26 AM
--- NOTE | 2023-06-14 08:03 | Pulmonology Progress Note ---
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 The space will most likely be filled by fluid going forward -- Pleural effusion R>L S/p thoracentesis 06/13/2023, 1.4 L of fluid removed, 74% lymphocytes, exudative Pleural fluid: LDH 157, protein 4.3, pH 7.44 Serum: LDH 174, total protein 7.3 Etiology is likely malignant Could be recurrence of breast cancer versus new Lung cancer Follow-up cytology -- Pulmonary nodule with mild mediastinal adenopathy and metastasis to the liver as well as bones Likely underlying malignancy Could be metastatic relapse of breast cancer or new lung cancer MRI brain - 06/13/2023 -- History of breast cancer S/p double mastectomy in 2010 --Current smoker Importance of quitting explained with the patient in depth Plan: Chest x-ray from today does not show any change in size of the pneumothorax ex vacuo on the right side. No need for any intervention like chest tube Patient is hemodynamically stable when it comes to her blood pressure and the heart rate. Advised the patient not to lift anything heavy for at least 2-3 weeks. No flying or scuba diving for 6-8 weeks Patient will likely need a Pleurx catheter in the near future if the pleural fluid comes back fast and cytology is positive. Recommend following up with pulmonary clinic in 2-3 weeks to have an office ultrasound. If there is any worsening in her chest tightness, chest pain, or she is feeling dizziness she should seek medical attention Case was discussed with primary team Please note the above document was generated using voice recognition software. It may contain grammatical, syntax or spelling errors.Any formal questions or concerns about the content, text or information contained within the body of this dictation should be directly addressed to the provider for clarification. Admission and Anticipated Discharge Date Admission Date: June 12, 2023 Subjective Patient seen and examined at bedside. No acute distress, no adverse events overnight She was saturating 95% on room air at the time of examination with heart rate in the high 90s Denied any chest pain, no pain on taking deep breaths No chest tightness. Shortness of breath is improved after taking the fluid out. Fair appetite Frustrated as she cannot have a liver biopsy today and asking to go home today. Review of Systems 2 Review of Systems: All systems reviewed & are unremarkable except as noted in Subjective Physical Exam 2 Physical Exam: Constitutional: No acute distress HEENT: EOMI, PERRLA Respiratory system: Decreased air entry on the right side, improved from before, no wheeze, no rhonchi, no crackles CVS: S1-S2 positive, no murmurs or gallops Abdomen: Soft, nontender, nondistended, positive bowel sounds x4 Extremities: +2 pulses bilaterally radialis/ dorsalis pedis, no cyanosis, no edema Neuro: Awake alert oriented x3 Psych: Normal mood and affect G/U: No Martino Skin: no rashes, warm and dry Lymphatic: no cervical or axillary lymphadenopathy Results & Data Results & Data Vital Signs (Past 12 Hours) Vital Signs Temp Pulse Resp BP Pulse Ox O2 Del Method O2 Flow Rate 06/13/23 23:36 Nasal Cannula 2 06/13/23 22:02 37.1 C 102 H 16 92/60 L 95 Room Air Laboratory Results 06/12/23 20:52 06/12/23 16:54 PG Care Time/CCT Total # of Minutes Spent Total Time Spent with Patient: Total time spent is greater than 50% in coordination of care (as documented) at patient's floor/unit and/or counseling patient: Coding Level of Care Code 78918 SUB INP/OBS CARE 3/50MIN Diagnoses Pleural effusion J90 Abnormal chest CT R93.89 History of tobacco use Z87.891 History of breast cancer Z85.3 Metastasis to liver C78.7
[2023-06-14] MEDS: TOPIRAMATE 25 MG TAB PO SCH (09:02)
[2023-06-14] MEDS: GABAPENTIN 800 MG TAB PO SCH (09:02)
[2023-06-14] MEDS: NICOTINE 21 MG/24 HR TDSY TD SCH (09:03)
[2023-06-14] MEDS: DULoxetine HCL 30 MG CAP PO SCH (09:09)
[2023-06-14] MEDS: PANTOprazole 40 MG TAB PO SCH (09:09)
[2023-06-14] MEDS: LORazepam 1 MG TAB PO SCH (09:21)
[2023-06-14] MEDS: METHYLPHENIDATE HCL 10 MG TABLET PO SCH (09:21)
--- NOTE | 2023-06-14 18:24 | Discharge Summary ---
Date of Service June 14, 2023 Admission HPI Per Admitting Provider Linnette Blackmon is a pleasant 57yo female with remote history of breast cancer (per patient she had Stage I breast cancer approximately 12 years ago and had a double mastectomy with breast reconstruction). Patient had a cough and shortness of breath in April before . She was seen at [facility] and had a CXR performed which showed a right hilar 3cm mass with large pleural effusion. She was treated with antibiotics and told that she should have a CT of the chest performed. Patient had a repeat CXR performed today by her PCP which revealed a moderate right sided pleural effusion as well as a 2.6 cm right midlung density. She was notified of the results and instructed to come to the ER for additional workup. She does report some shortness of breath noted several days ago as well as FLOWER and some orthopnea. 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 Clear to auscultation bilaterally, right- sided breath sounds improved, diminished in both bases Heart: Regular rate and rhythm, no murmurs. No JVD Abdomen: nondistended. Extremities: Warm, dry, well-perfused. No extremity edema. Neuro: Alert and oriented x 4, face symmetric, moves 4 extremities well Psych: Normal affect and behavior Discharge Data Allergies Allergy/AdvReac Type Severity Reaction Status Date / Time Penicillins Allergy Severe THROAT Verified 06/13/23 19:19 CLOSES Sulfa (Sulfonamide Allergy Intermediate Hives Verified 06/13/23 19:19 Antibiotics) Consultations 06/12/23 20:50 ED Decision to Admit Stat 06/12/23 22:39 Consult Pulmonology Routine 06/13/23 18:16 Consult [facility] Routine 06/14/23 08:03 Consult Oncology Routine 06/14/23 09:07 Consult [facility] pharmac[facility] Routine Ordered Studies 06/12/23 15:27 CT angio chest PE protocol Stat 06/13/23 07:06 US point of care ultrasound Urgent 06/13/23 08:08 CT abdomen pelvis wo/w con Routine MRI Brain [MR brain wo/w con] Routine Chest CTA 06/12/23 15:27 CT ANGIOGRAM OF THE CHEST CLINICAL HISTORY: Dyspnea. Abnormal chest x-ray. COMPARISON STUDY: Chest x-ray dated 06/12/2023. Chest CT dated 03/16/2009. TECHNIQUE: Following the IV administration of 74 cc of Optiray 320, CT angiogram of the chest was performed from the upper abdomen to the thoracic inlet utilizing the pulmonary embolus protocol. Images are reviewed in the axial, sagittal, and coronal planes. 3-D MIPS images are created and assessed. IV contrast was administered without complication. A dose lowering technique was utilized adhering to the principles of ALARA. CT DOSE: 630.75 mGy.cm FINDINGS: Thyroid: Imaged portions of the thyroid gland are normal in size and attenuation. Thoracic aorta: The thoracic aorta is normal in caliber and demonstrates standard 3-vessel arch anatomy. No dissection is seen. Pulmonary vasculature: The pulmonary trunk is normal in caliber. There are no filling defects identified in main, lobar, or segmental pulmonary branches to suggest pulmonary embolus. Heart: The heart is normal in size and without pericardial effusion. Lungs and pleural spaces: There is a moderate to large right pleural effusion with atelectasis of the right lower lung. Pleural thickening and enhancement is suggested in the right lower lobe, and this effusion may be malignant. A small pleural effusion is seen on the left. Subpleural scarring anterior right lung may be treatment related. Impression live interseptal thickening is noted. Patchy groundglass opacities are seen throughout both lungs. A 13 mm nodular opacity in the left lower lobe is seen on image 133. Mediastinum: There are mildly enlarged mediastinal lymph nodes. A precarinal node measures 11 mm in short axis. Teressa: Prominent hilar nodes measure up to 10 mm short axis. Axillae: Surgical clips are noted in the left axilla. There is no axillary lymphadenopathy. Upper abdomen: There are at least 2 hypodense lesions in the left lobe of the liver seen on images #25 and #13. These measure up to 12 mm and were not clearly seen on prior studies. These are suspicious for metastatic disease. Skeletal structures: The skeletal structures are osteopenic. There is mild chronic compression deformity of T5. 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 The largest lesions are seen in the bodies of T5, T10, and T12.. There are chronic/healed left-sided rib fractures. Soft tissues: There are bilateral breast implants. IMPRESSION: 1. There is no evidence of pulmonary embolus in the main, lobar, or segmental pulmonary arteries. 2. Moderate to large right pleural effusion. Pleural thickening and enhancement is suggested at the right lung base, and a malignant effusion is not excluded. 3. A small pleural effusion is seen on the left. 4. Findings are highly suspicious for multifocal osteoblastic metastatic disease. 5. There are 2 low-attenuation left lobe liver lesions. These were not clearly seen on prior examinations and are also highly suspicious for metastatic disease. 7. Intralobular septal thickening suggests fluid overload/congestive change. Correlate clinically. 8. Patchy groundglass opacities throughout both lungs could represent mild pulmonary edema and/or an infectious/inflammatory pneumonitis. Again, correlate clinically. 9. A 13 mm nodular opacity in the left lower lobe is pathologically indeterminate. Neoplasm is not excluded. Attention at follow-up is recommended. 10. Mildly enlarged mediastinal lymph nodes are pathologically indeterminate. Attention at follow-up is recommended. 11. Additional findings as above. ACT 112: Positive. There are findings on this exam that require communication between the performing entity and the patient following Patient Test Result Information Act ([place] Act 112) guidelines. Electronically signed by: Alex Dwyer M.D. 06/12/2023 7:09 PM Abdomen/Pelvis CT 06/13/23 08:08 CT SCAN OF THE ABDOMEN AND PELVIS COMBO CLINICAL HISTORY: Metastatic disease. COMPARISON STUDY: Abdominal CT dated 12/05/2021. Chest CT dated 06/12/2023. TECHNIQUE: Before and following the IV administration of 90 cc of Optiray 320, CT scan of the abdomen and pelvis is performed from the lung bases to the proximal femora. Images are reviewed in the axial, sagittal, and coronal planes. IV contrast was administered without complication. A dose lowering technique was utilized adhering to the principles of ALARA. CT DOSE: 1217.52 mGy.cm FINDINGS: Lung bases: The heart is normal in size and without pericardial effusion. Hydropneumothorax in the right lung base. Pleural thickening and enhancement is seen at the right lung base. The right pleural effusion that may be malignant. There is a small left pleural effusion. Breast implants are partially imaged. Nodular septal thickening is noted in the lower lobes. There is a tiny hiatal hernia. Liver: The contrast-enhanced liver is normal in size, contour, and attenuation. There is no intrahepatic biliary ductal dilatation. The hepatic veins and portal veins are patent. There is evidence of multifocal hepatic metastatic disease with greater than 15 lesions identified. The largest lesions in the inferior right lobe on image #94, measuring up to 5.5 cm. Gallbladder: Unremarkable. Spleen: Normal in size and attenuation. Pancreas: Unremarkable. Adrenal glands: There is mild nodular thickening of the adrenal glands. Kidneys: The contrast enhanced kidneys are normal in size and without hydronephrosis. The kidneys enhance symmetrically. No renal calculi are identified on the unenhanced series. Abdominal vasculature: The abdominal aorta is normal in course and caliber noting moderate to advanced atherosclerotic calcification. There is mild to moderate focal stenosis of the abdominal aorta seen on image #154. There is high-grade stenosis of the right common iliac artery seen on axial image #182. There is moderate stenosis of the left common iliac artery. Bowel: There is no bowel obstruction. The appendix is well-visualized and normal. Peritoneum: There is no intraperitoneal free air or abdominal ascites. There is a large fat-containing supraumbilical hernia as seen on axial image #95. There is a small fat-containing umbilical hernia. A navel piercing is in place. Lymphadenopathy: None. Pelvic viscera: The bladder is some excreted IV contrast. The uterus and adnexa are normal as visualized. Skeletal structures: There is evidence of multifocal osteoblastic metastatic disease. Lesions are seen within the bodies of T10, T12, L1, L3, and L4. Small lesions are also noted in the sacrum. IMPRESSION: 1. Hydropneumothorax is seen at the right lung base. The right pleural effusion may be malignant. 2. Small left pleural effusion. 3. Multifocal hepatic metastatic disease. 4. Multifocal osseous metastatic disease. 5. There is high-grade focal stenosis of the right common iliac artery. 6. Additional findings as above. ACT 112: Negative or not required by law. Electronically signed by: Alex Dwyer M.D. 06/13/2023 1:45 PM Brain MRI 06/13/23 08:08 MR brain wo/w con HISTORY: 57 years-old Female suspected lung cancer history of breast cancer with osseous metastatic disease. COMPARISON: 11/18/20 TECHNIQUE: Multiplanar multisequence MRI of the brain was obtained both with and without the use of IV contrast. FINDINGS: No restricted diffusion. There is no acute intracranial hemorrhage, midline shift, abnormal extra-axial collection, hydrocephalus or intra-axial mass. No pathologic looming artifact. 7 mm bone lesion of the T2 vertebral body on image 11 series 9 demonstrates decreased T1 signal. This lesion demonstrates increased diffusion weighted signal as well. The volume and signal of the brain parenchyma is within normal limits. Cerebral venous sinuses and major arterial flow voids appear patent. Skull, orbits and soft tissues are unremarkable. No abnormal intra-axial enhancement. IMPRESSION: 1. No acute intracranial abnormality. 2. No brain metastasis identified. 3. Subcentimeter osseous metastatic lesion of the dens. ACT 112: Negative or not required by law. The above report was generated using voice recognition software. It may contain grammatical, syntax or spelling errors. Electronically signed by: Edward Peoples M.D. 06/13/2023 2:54 PM Chest X-Ray 06/13/23 12:18 SINGLE VIEW CHEST CLINICAL HISTORY: Status post right thoracentesis. FINDINGS: An AP, portable, upright chest radiograph is compared to chest x-ray and chest CT dated 06/12/2023. Surgical clips are noted in the axilla bilaterally. The cardiomediastinal silhouette is unremarkable. There are layering bilateral pleural effusions with dependent consolidation. Right pleural effusion has decreased in size from yesterday. There is a moderate right apical to basilar pneumothorax. There is approximately 1.8 cm of apical pleural separat ion. No pneumothorax is seen on the left. No lobar consolidation is identified. The skeletal structures are osteopenic. The bony thorax is grossly intact. IMPRESSION: 1. A moderate right apical to basilar pneumothorax is seen post thoracentesis. 2. Layering pleural effusions with dependent consolidation. The right pleural effusion has significantly decreased in size from yesterday. 3. Additional findings as above ACT 112: Negative or not required by law. Electronically signed by: Alex Dwyer M.D. 06/13/2023 12:44 PM Chest X-Ray 06/13/23 15:00 XR chest 1V portable CLINICAL HISTORY: f/u COMPARISON STUDY: Chest CT June 12, 2023. Chest radiograph performed earlier today. FINDINGS: Moderate right pneumothorax is unchanged in size since chest radiograph performed earlier today. The pneumothorax is predominantly basilar in location. Small residual right pleural effusion is noted. No left pneumothorax is present. Cardiomediastinal silhouette is stable. There are bilateral axillary surgical clips. IMPRESSION: No significant change in a moderate right pneumothorax since chest radiograph performed earlier today. Small residual pleural effusion. ACT 112: Negative or not required by law. Electronically signed by: Aolnso Brice M.D. 06/13/2023 3:19 PM Chest X-Ray 06/14/23 07:00 SINGLE VIEW CHEST CLINICAL HISTORY: Follow-up hydropneumothorax. FINDINGS: An AP, portable, upright chest radiograph is compared to study dated 06/03/2023 and correlated with chest CT dated 06/12/2023. Surgical clips are noted in the axilla bilaterally. The cardiomediastinal silhouette is unremarkable. There are layering bilateral pleural effusions with dependent consolidation. Moderate right hydropneumothorax is unchanged from yesterday. There is approximately 1.9 cm of apical pleural separation. No pneumothorax is seen on the left. No lobar consolidation is identified. The skeletal structures are osteopenic. The bony thorax is grossly intact. IMPRESSION: 1. Moderate right hydropneumothorax has not significantly changed from yesterday. 2. Layering pleural effusions with dependent consolidation. ACT 112: Negative or not required by law. Electronically signed by: Alex Dwyer M.D. 06/14/2023 7:26 AM Hospital Course (1) Pleural effusion: 57yo female presenting with shortness of breath. Patient with moderate to large pleural effusion noted on CT chest as well as a 13mm LLL lung nodule, enlarged mediastinal lymph nodes, findings concerning for multifocal osteoblastic disease and 2 lesions in the left lobe of the liver. ordered CT abdomen and pelvis 06/13 with findings of hydropneumothorax in the right base, small left pleural effusion, multiple hepatic metastases, widespread osseous metastases T10, T12, L1, L3, L4, sacrum, and small subcentimeter metastasis in dens seen on MRI brain. MRI brain was reviewed and no evidence of brain metastases. Primary source - consider lung or breast - patient with long history of smoking >20 pack year - stage I breast cancer in 2010 treated with bilateral mastectomy - EGD/EUS and colonoscopy in 2020 - Discussed with water resource project manager and medical oncologist 06/13, 06/14 - she had thoracentesis 06/13 for 1200 mL, reviewed fluid studies which are fairly unremarkable not consistent with empyema, cytology is pending - she has small to moderate pneumothorax on chest x-ray, stable on serial films and asymptomatic, discussed with Dr. Azevedo who felt this space was caused by trapped lung and would likely fill with fluid, low risk to worsen and safe to discharge home today. Discussed return precautions of chest pain or increase in shortness of breath, no lifting 3 weeks, no flying/diving - medical oncologist recommended obtaining liver biopsy to assist with tissue diagnosis and analysis, discussed with IR Linnette did not wish to remain in hospital for possible biopsy tomorrow therefore arranged as outpatient in one week on 06/24. - follow up with Dr. Azevedo and Dr. 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: widespread osseous metastases noted on CT imaging including T10, T12, L1, L3, L4, sacrum, and small subcentimeter metastasis in dens seen on MRI brain (4) Vascular disease of abdomen: incidental finding on CT abdomen and pelvis: severe right common iliac stenosis, moderate left common iliac stenosis, mild to moderate stenosis of abdominal aorta - abstinence from smoking advised - typically takes aspirin 81 mg held for procedures - advised not to take until after liver biopsy - ordered lipid panel - elevated above goal for vascular disease - I am hesitant to start statin now with multiple liver mets and likely initiation of chemotherapy soon, defer to outpatient setting pending clinical course - unclear whether these stenoses are symptomatic, no evidence of acute limb ischemia and no wounds, had leg cramps but these occur at night and not with exertion. would not explain the numbness symptoms that are attributed to her neuropathy. - made referral to outpatient vascular surgery (5) Bipolar 2 disorder: Chronic. Stable -Continue home medications - Topamax, Seroquel (6) ADD (attention deficit disorder): Chronic. Stable -Continue Ritalin at home dose (7) History of breast cancer: stage I treated with bilateral mastectomy in 2010, treatment was at [place] (8) Alcoholism in remission: (9) Factor V Leiden: (10) History of tobacco use: I counseled cessation Total Time Total Time Spent Total Time Spent (In Minutes): I personally spent: 70 minutes today on clinical care activities for discharge including: reviewing chart notes and vital signs reviewing labs reviewing studies discussion with recruiting consultant(s) -pulmonary, oncology, arranging close interventional radiology follow-up for procedure Discussion with care coordination, arranging discharge appointment examining and counseling the patient writing orders documentation Discharge Plan Discharge Items Patient Disposition: Home - Self-Care Reason For Visit: PLEURAL EFFUSION, SOB Discharge Diagnosis: right pleural effusion, likely malignant. metastatic cancer Condition on Discharge: Fair Activity: Per Instructions section Lifting: No more than 10 pounds Lifting Comment: for 2-3 weeks Non-emergency contact: Primary Care Provider, Oncologist and Lpn Or Medical Assistant Call non-emergency contact if: you have any medication questions, your symptoms worsen and you have a fever Follow-up/Referrals: Shama Azevedo MD, [facility] [Physician] - 06/28/23 10:00 am (Appointment with be with Simon Gutierrez, Physician Assistant Professor Of Education. Please arrive 15 min. prior to scheduled appointment. Thank you!) Josiah Montes MD [Physician] - ([facility] is going to call you with an appointment time. They plan to get you on Dr. Montes's schedule within 1-2 weeks. If you do not hear from them by Sunday at the latest, please call to follow up. Thank you!) Dany Armando DO [Primary Care Provider] - 06/20/23 1:00 pm (Please arrive 15 min. prior to your scheduled appointment. Thank you!) Diet: Regular Addtl Attending Provider Instructions: You were evaluated for right pleural effusion (fluid in chest around the lung). Unfortunately it appears that this is related to a widespread cancer. You had thoracentesis and 1200 mL fluid was drained from right chest. The fluid is being analyzed for cancer cells -there is some air in your right chest, the water resource project manager thinks that this is likely a condition called trapped lung and unlikely a pneumothorax related to the thoracentesis procedure -this was followed with serial chest X-ray and is stable and remains asymptomatic -to be safe he advised no heavy lifting for 2-3 weeks and no flying (or scuba diving) for 6 weeks -seek immediate medical attention if you have chest pain or increased shortness of breath -follow up in pulmonary clinic The medical oncologist also recommended a biopsy of a liver lesion, which is scheduled for next week -follow up with Dr. Montes to discuss the biopsy results and future plan of care. There was an incidental finding on your abdominal CT scan of stenosis (narrowing ) in your abdominal aorta and the iliac arteries (arteries that supply your legs). I made an outpatient referral to vascular surgery to follow up this finding. -stopping smoking is the most powerful thing you can do to prevent worsening of vascular (artery) disease -your blood pressure is normal -do not take aspirin (or ibuprofen) until 48h after your liver biopsy, however, [facility] staying on aspirin 81 mg daily is a good idea -your cholesterol is elevated and you would benefit from statin medication, however, we'll hold off on starting that right now until your cancer treatment plan is defined Addtl Receiving Associate Provider Instructions: Franc will be calling you to arrange a Vascular Surgery appointment. Pending Studies at Discharge: Yes Stand-Alone Forms: My [facility], Smoking Cessation Medications and DC Order Prescriptions: New nicotine [Nicoderm CQ] 21 mg/24 hr Patch 24 Hour 21 mg transdermal QAM Qty: 0 0RF Rx Instructions: over the counter duloxetine 30 mg Capsule,Delayed Release(Dr/Ec) 30 mg PO DAILY Qty: 0 0RF Continued pantoprazole 40 mg tablet,delayed release (DR/EC) 40 mg PO DAILY Qty: 30 5RF cyclobenzaprine 5 mg tablet 5 mg PO TID PRN (Reason: MUSCLE SPASMS) Qty: 90 3RF gabapentin 800 mg tablet 800 mg PO TID Qty: 90 3RF acetaminophen [Tylenol Extra Strength] 500 mg tablet 1,000 mg PO QAM Rx Instructions: Takes ([id number]) methylphenidate HCl 20 mg tablet 10 mg PO BID quetiapine 50 mg tablet 50 mg PO HS Rx Instructions: TAKES WITH 100 MG TAB. topiramate [Topamax] 25 mg tablet 25 mg PO BID quetiapine 100 mg tablet 100 mg PO HS Rx Instructions: take with 25-50 mg tab albuterol sulfate 90 mcg/actuation HFA aerosol inhaler 2 puff INHALATION Q4H PRN (Reason: COUGH/WHEEZING) duloxetine 40 mg capsule,delayed release(DR/EC) 40 mg PO QAM lorazepam 1 mg tablet 1 mg PO DAILY Held ibuprofen 800 mg tablet 800 mg PO PM Hold Instructions: Resume on 06/23/23. Discharge Orders: Discharge Order (Routine); Ordered 06/14/23 Ordered By: Kelly Haines Admission Data Admit Date/Time: 06/12/23 21:07 Attending Provider: Kelly Haines Admit Provider: Светлана Bowie Primary Care Provider: Dany Armando Other Providers: Shama Azevedo; Светлана Bowie; Alex Vega; Idalmis Marinelli; Dalia Mccallum; Darian Galeano; Angelic Amos; Josiah Montes; Chasidy Bear; Viki Morel; Dimas Parker; Ambrosio Melvin; Chandrika Hannah; nickCCP,No Attending Other Interventions: Discharge Summary Assessment (RN) Last Done: 06/14/23 10:28 Coding Level of Care Code 50641 INP/OBS DISCH >30 MIN Diagnoses Pleural effusion J90 Metastasis to liver C78.7 Metastatic cancer to spine C79.51 Vascular disease of abdomen I99.9 Bipolar 2 disorder F31.81 ADD (attention deficit disorder) F98.8 History of breast cancer Z85.3 Alcoholism in remission F10.21 Factor V Leiden D68.51 History of tobacco use Z87.891
== END 2023-06-14 10:53 | disposition home or self-care (01) | DRG 598 ==
LOC: ED 15:00 → 3N 21:07 → SUATTDRO 21:07 → 3N 22:25
DX: C50.919 Malignant neoplasm of unspecified site of unspecified female breast; I74.5 Embolism and thrombosis of iliac artery; J91.0 Malignant pleural effusion; Z88.2 Allergy status to sulfonamides; C34.90 Malignant neoplasm of unspecified part of unspecified bronchus or lung; J94.8 Other specified pleural conditions; Z88.0 Allergy status to penicillin; Z87.891 Personal history of nicotine dependence; C79.51 Secondary malignant neoplasm of bone; F31.81 Bipolar II disorder; C78.7 Secondary malignant neoplasm of liver and intrahepatic bile duct; D68.51 Activated protein C resistance; F10.21 Alcohol dependence, in remission; F90.9 Attention-deficit hyperactivity disorder, unspecified type